=== PATIENT | male | born 1940 | race Caucasian/White ===

== ENCOUNTER 2016-08-27 17:08 | Emergency (ER) | payer MEDICARE, MEDICAID ==
[2016-08-27] MEDS ORDERED: NALOXONE HCL INJ/PF 0.4 MG/1 ML SDV ONE (17:36)
[2016-08-27] MEDS ORDERED: NALOXONE HCL INJ/PF 0.4 MG/1 ML SDV IV ONE (17:38)
--- NOTE | 2016-08-27 17:45 | ER Document Report ---
ED General - General Chief Complaint: Altered Mental Status Stated Complaint: UPRESPONSIVE Time seen by provider: 17:25 Mode of Arrival: Medic Information source: Emergency Med Personnel Notes: 76-year-old male sent from assisted with report of being nonverbal since noon. Review of records shows that his baseline neurologic status January 2015 was that he was alert and oriented to person only. Patient currently is obtunded and cannot provide history assisted cannot provide additional history Physical Exam: General: Alert, no respiratory distress. HEENT: Normocephalic. Atraumatic. PERRLA. Extraocular movements intact. Discs sharp with no papilledema sclerae anicteric no otorhinorrhea Oropharynx clear. Neck: Supple. Non-tender. No JVD no carotid bruits Respiratory: No respiratory distress. Clear and equal breath sounds bilaterally. Cardiovascular: Regular rate and rhythm. PMI not displaced Abdominal: Normal Inspection. Soft, non-tender. No distension. Normal Bowel Sounds. Back: Non-tender. No deformity or step off. Extremities all warm with 2+ pulses no cyanosis no edema passive range of motion does not produce any discomfort no Homans sign bilaterally Neurological: Did not appreciate any cranial nerve deficits. Patient is observed to have some spontaneous use of the left upper extremity but cannot otherwise cooperate with formal neurologic testing Psychological: Unable to assess Skin: Warm. Dry. Normal color. TRAVEL OUTSIDE OF THE [place] IN LAST 30 DAYS: No - Related Data Allergies/Adverse Reactions: No Known Allergies Allergy (Verified 12/25/15 13:30) Past Medical History - Social History Smoking Status: Unknown if Ever Smoked Family History: Other - Unobtainable due to altered mental status - Past Medical History Cardiac Medical History: Reports: Hx Congestive Heart Failure, Hx Coronary Artery Disease, Hx Heart Attack, Hx Hypercholesterolemia, Hx Hypertension, Hx Peripheral Vascular Disease, Hx Pulmonary Embolism Pulmonary Medical History: Denies: Hx Tuberculosis Neurological Medical History: Reports: Hx Cerebrovascular Accident - Residual right-sided weakness per old records, Hx Migraine Endocrine Medical History: Reports: Hx Diabetes Mellitus Type 2 GI Medical History: Reports: Hx Gastroesophageal Reflux Disease Musculoskeltal Medical History: Reports Hx Muscle Weakness Psychiatric Medical History: Reports: Hx Bipolar Disorder, Hx Dementia, Hx Depression Past Surgical History: Reports: Hx Cardiac Surgery - CABG, Hx Coronary Artery Bypass Graft, Hx Orthopedic Surgery - r-knee, back. Denies: Hx Pacemaker - Immunizations Hx Diphtheria, Pertussis, Tetanus Vaccination: Yes Hx Pneumococcal Vaccination: 02/24/11 Review of Systems - Review of Systems -: Yes ROS unobtainable due to patient's medical condition Physical Exam - Vital signs Vitals: Resp BP Pulse Ox 12 159/72 H 98 08/27/16 17:25 08/27/16 17:25 08/27/16 17:25 Course - Re-evaluation Re-evalutation: 08/27/16 19:16 The patient became awake and alert approximately 9 minutes after receiving 0.4 g of Narcan in the emergency department. His med list does not list narcotics and I'm not convinced that the Narcan actually reversed anything the patient may simply had a component of encephalopathy possibly related to other medicines that he is prescribed. In any case is now status has remained at his baseline since then though no new focal deficits and mental status seems normal according to his sister who is at the bedside. He does have some evidence for UTI and will be treated with antibiotics for that but I do not believe she requires admission. He is complaining about mild diffuse headache now and received Tylenol for that - Vital Signs Vital signs: Temp Pulse Resp BP Pulse Ox 97.5 F 19 144/79 H 97 08/27/16 18:34 08/27/16 18:01 08/27/16 18:01 08/27/16 18:01 - Laboratory Result Diagrams: 08/27/16 17:25 08/27/16 17:25 Laboratory results interpreted by me: 08/27/16 08/27/16 08/27/16 17:25 17:25 17:25 RDW 15.8 H PT 21.9 H Carbonic Acid ABG pH ABG pCO2 ABG pO2 ABG O2 Saturation BUN 24 H Creatinine 1.46 H Est GFR ( Amer) 57 L Est GFR (Non-Af Amer) 47 L Glucose 275 H POC Glucose AST 15 L Creatine Kinase 25 L Urine Protein Urine Glucose (UA) Urine Blood Urine Nitrite Ur Leukocyte Esterase 08/27/16 08/27/16 08/27/16 17:28 18:15 18:28 RDW PT Carbonic Acid 1.69 H ABG pH 7.26 L ABG pCO2 56.3 H ABG pO2 20.7 L* ABG O2 Saturation 26.8 L BUN Creatinine Est GFR ( Amer) Est GFR (Non-Af Amer) Glucose POC Glucose 246 H AST Creatine Kinase Urine Protein 100 H Urine Glucose (UA) >=500 H Urine Blood SMALL H Urine Nitrite POSITIVE H Ur Leukocyte Esterase TRACE H Urinalysis shows evidence for UTI - Diagnostic Test Radiology reviewed: Image reviewed, Reports reviewed - EKG Interpretation by Me Additional EKG results interpreted by me: 08/27/16 19:16 EKG reviewed by myself sinus rhythm at 64 first degree AV block and nonspecific intraventricular conduction delay nonspecific ST and T wave changes unchanged from 01/28/2016 Discharge - Discharge Clinical Impression: Acute encephalopathy UTI (urinary tract infection) Qualifiers: Urinary tract infection type: site unspecified Hematuria presence: without hematuria Qualified Code(s): N39.0 - Urinary tract infection, site not specified Condition: Stable Disposition: HOME-SNF (ED ONLY) Prescriptions: Cephalexin Monohydrate [Keflex 500 mg Capsule] 500 mg PO QID #40 capsule Referrals: SARAH ANDRADE MD [NO LOCAL MD] - Follow up in 1 week
[2016-08-27 18:09] LABS: ABSOLUTE BASOPHILS # (AUTO) 0.1 10^3/uL (0.0-0.2); ABSOLUTE EOSINOPHILS # (AUTO) 0.1 10^3/uL (0.0-0.6); ABSOLUTE LYMPHOCYTES (AUTO) 2.3 10^3/uL (0.5-4.7); ABSOLUTE MONOCYTES (AUTO) 0.5 10^3/uL (0.1-1.4); ABSOLUTE NEUT (AUTO) 4.7 10^3/uL (1.7-8.2); BASOPHILS % (AUTO) 0.9 % (0-2); EOSINOPHILS % (AUTO) 1.9 % (0-6); HEMATOCRIT 46.7 % (37.9-51.0); HEMOGLOBIN 15.7 g/dL (13.5-17.0); HGB HCT DIFFERENCE 0.4; LYMPHOCYTES % (AUTO) 30.1 % (13-45); MEAN CORPUSCULAR HEMOGLOBIN 28.9 pg (27.0-33.4); MEAN CORPUSCULAR HGB CONC 33.5 g/dL (32.0-36.0); MEAN CORPUSCULAR VOLUME 86 fl (80-97); MONOCYTES % (AUTO) 7.1 % (3-13); RED BLOOD COUNT 5.41 10^6/uL (4.35-5.55); RED CELL DISTRIBUTION WIDTH 15.8 % (11.5-14.0); WHITE BLOOD COUNT 7.8 10^3/uL (4.0-10.5)
[2016-08-27 18:12] LABS: PROTHROMBIN TIME 21.9 SEC (11.4-15.4)
[2016-08-27 18:13] LABS: PARTIAL THROMBOPLASTIN TIME 32.9 SEC (23.5-35.8)
[2016-08-27 18:21] LABS: ALANINE AMINOTRANSFERASE 23 U/L (21-72); ALBUMIN 3.8 g/dL (3.5-5.0); ALKALINE PHOSPHATASE 80 U/L (38-126); ANION GAP 12 (5-19); ASPARTATE AMINO TRANSFERASE 15 U/L (17-59); BILIRUBIN,DIRECT 0.4 mg/dL (0.0-0.4); BILIRUBIN,TOTAL 0.6 mg/dL (0.2-1.3); BLOOD UREA NITROGEN 24 mg/dL (7-20); CALCIUM 9.5 mg/dL (8.4-10.2); CARBON DIOXIDE 23 mmol/L (22-30); CHLORIDE 107 mmol/L (98-107); CREATINE KINASE 25 U/L (55-170); CREATININE RESULT 1.46 mg/dL (0.52-1.25); GLUCOSE 275 mg/dL (75-110); MAGNESIUM 2.1 mg/dL (1.6-2.3); POTASSIUM 4.6 mmol/L (3.6-5.0); SODIUM 141.9 mmol/L (137-145); TOTAL PROTEIN 6.9 g/dL (6.3-8.2)
[2016-08-27 18:29] LABS: ARTERIAL BLOOD BASE EXCESS -3.6 mmol/L; ARTERIAL BLOOD O2 SATURATION 26.8 % (94-98)
[2016-08-27 18:34] LABS: CREATINE KINASE MB 0.97 ng/mL (<4.55)
[2016-08-27 18:38] LABS: TROPONIN I < 0.012 ng/mL
[2016-08-27 19:00] LABS: APPEARANCE,URINE SLIGHTLY-CLOUDY; BILIRUBIN,URINE NEGATIVE (NEGATIVE); GLUCOSE, URINE >=500 mg/dL (NEGATIVE); KETONES,URINE NEGATIVE (NEGATIVE); LEUKOCYTE ESTERASE,URINE TRACE (NEGATIVE); NITRITE,URINE POSITIVE (NEGATIVE); PROTEIN,URINE 100 mg/dL (NEGATIVE); URINE SPECIFIC GRAVITY 1.021; UROBILINOGEN,URINE NEGATIVE mg/dL (<2.0)
[2016-08-27] MEDS ORDERED: ACETAMINOPHEN 325 MG TABLET PO ONE (19:18)
[2016-08-27 20:37] VITALS: BP 158/86
[2016-08-27 21:34] LABS: URINE BARBITURATES SCREEN NEGATIVE; URINE METHADONE SCREEN NEGATIVE; URINE OPIATES LOW NEGATIVE; URINE PHENCYCLIDINE SCREEN NEGATIVE
--- NOTE | 2016-08-28 08:12 | EKG REPORT ---
SEVERITY:- ABNORMAL ECG - SINUS RHYTHM FIRST DEGREE AV BLOCK NONSPECIFIC INTRAVENTRICULAR CONDUCTION DELAY MINIMAL ST DEPRESSION, LATERAL LEADS : Confirmed by: Ranjan White MD 28-Aug-2016 08:11:20
== END 2016-08-27 20:43 ==
LOC: ER 17:08
DX: R41.82 Altered mental status, unspecified (principal); G93.49 Other encephalopathy
CPT/HCPCS: 93005; 99285; 51702; 96374; 36415; 87040; 87086; 82553; 82962; 82803; 82550; 83735; 85025; 85610; 85730; 87088; 80053; 81001; 84484; 87186; 80307; 83880; 71010; 70450; 93010; A9270; J2310

== ENCOUNTER 2017-04-13 18:48 | Emergency (ER) | payer MEDICARE, MEDICAID ==
[2017-04-13 19:36] LABS: ABSOLUTE BASOPHILS # (AUTO) 0.1 10^3/uL (0.0-0.2); ABSOLUTE EOSINOPHILS # (AUTO) 0.2 10^3/uL (0.0-0.6); ABSOLUTE LYMPHOCYTES (AUTO) 1.9 10^3/uL (0.5-4.7); ABSOLUTE MONOCYTES (AUTO) 0.5 10^3/uL (0.1-1.4); ABSOLUTE NEUT (AUTO) 5.6 10^3/uL (1.7-8.2); BASOPHILS % (AUTO) 0.8 % (0-2); EOSINOPHILS % (AUTO) 2.1 % (0-6); HEMATOCRIT 43.5 % (37.9-51.0); HEMOGLOBIN 14.9 g/dL (13.5-17.0); HGB HCT DIFFERENCE 1.2; LYMPHOCYTES % (AUTO) 22.7 % (13-45); MEAN CORPUSCULAR HEMOGLOBIN 30.5 pg (27.0-33.4); MEAN CORPUSCULAR HGB CONC 34.2 g/dL (32.0-36.0); MEAN CORPUSCULAR VOLUME 89 fl (80-97); MONOCYTES % (AUTO) 5.9 % (3-13); RED BLOOD COUNT 4.88 10^6/uL (4.35-5.55); SEGMENTED NEUTROPHILS % (AUTO) 68.5 % (42-78); WHITE BLOOD COUNT 8.2 10^3/uL (4.0-10.5)
[2017-04-13 19:39] LABS: ALANINE AMINOTRANSFERASE 22 U/L (21-72); ALBUMIN 4.1 g/dL (3.5-5.0); ALKALINE PHOSPHATASE 65 U/L (38-126); ANION GAP 12 (5-19); ASPARTATE AMINO TRANSFERASE 24 U/L (17-59); BILIRUBIN,DIRECT 0.3 mg/dL (0.0-0.4); BILIRUBIN,TOTAL 0.4 mg/dL (0.2-1.3); BLOOD UREA NITROGEN 18 mg/dL (7-20); CALCIUM 9.2 mg/dL (8.4-10.2); CARBON DIOXIDE 23 mmol/L (22-30); CHLORIDE 108 mmol/L (98-107); CREATININE RESULT 1.29 mg/dL (0.52-1.25); GLUCOSE 175 mg/dL (75-110); POTASSIUM 4.5 mmol/L (3.6-5.0); SODIUM 142.8 mmol/L (137-145); TOTAL PROTEIN 7.1 g/dL (6.3-8.2)
--- NOTE | 2017-04-13 19:47 | RADIOLOGY REPORT (SQ) ---
EXAM DESCRIPTION: CHEST SINGLE VIEW COMPLETED DATE/TIME: 04/13/2017 7:36 pm REASON FOR STUDY: cough COMPARISON: 08/27/2016. EXAM PARAMETERS: NUMBER OF VIEWS: One view. TECHNIQUE: Single frontal radiographic view of the chest acquired. RADIATION DOSE: NA LIMITATIONS: None. FINDINGS: LUNGS AND PLEURA: Chronic elevation of the left hemidiaphragm. Scattered basilar scarring . No lobar infiltrates. No pleural effusion. No pneumothorax. No opacities, masses or pneumothora x. No pleural effusion. MEDIASTINUM AND HILAR STRUCTURES: No masses. Contour normal. HEART AND VASCULAR STRUCTURES: Heart normal in size. Normal vasculature. BONES: No acute findings. HARDWARE: Sternotomy wires and coronary bypass markers. Stimulator unit with electrodes extending in to the neck. OTHER: No other significant finding. IMPRESSION: STABLE CHRONIC CHANGES WITH BASILAR SCARRING. NO ACUTE FINDINGS. TECHNICAL DOCUMENTATION: JOB ID: [id number] [employer]- All Rights Reserved
[2017-04-13 19:55] LABS: APPEARANCE,URINE CLEAR; BILIRUBIN,URINE NEGATIVE (NEGATIVE); GLUCOSE, URINE >=500 mg/dL (NEGATIVE); KETONES,URINE NEGATIVE (NEGATIVE); LEUKOCYTE ESTERASE,URINE NEGATIVE (NEGATIVE); NITRITE,URINE NEGATIVE (NEGATIVE); PROTEIN,URINE 100 mg/dL (NEGATIVE); URINE SPECIFIC GRAVITY 1.016; UROBILINOGEN,URINE NEGATIVE mg/dL (<2.0)
--- NOTE | 2017-04-13 19:59 | ER Document Report ---
ED General - General Chief Complaint: Altered Mental Status Stated Complaint: ALTERED MENTAL STATUS Time Seen by Provider: 04/13/17 19:27 Notes: Patient is a 76-year-old male who presents from [facility] with staff concerns of altered mental status. The patient himself denies any complaints and states that he does not feel confused. On review of systems he does state that he has had a mild, dull, throbbing headache for the past several hours but does feel like his usual headaches. Nothing improves or worsens the headache. He denies any associated focal weakness, numbness, altered mental status, fever or neck pain. No head trauma. He denies any localizing infectious symptoms including dysuria, cough, sputum production, or abdominal pain. No vomiting or diarrhea. TRAVEL OUTSIDE OF THE [place] IN LAST 30 DAYS: No - Related Data Allergies/Adverse Reactions: No Known Allergies Allergy (Verified 12/25/15 13:30) Past Medical History - General Information source: Patient - Social History Smoking Status: Never Smoker Chew tobacco use (# tins/day): No Frequency of alcohol use: None Drug Abuse: None Lives with: Detention Family History: Reviewed & Not Pertinent, Other - Unobtainable due to altered mental status Patient has suicidal ideation: No Patient has homicidal ideation: No - Past Medical History Cardiac Medical History: Reports: Hx Congestive Heart Failure, Hx Coronary Artery Disease, Hx Heart Attack, Hx Hypercholesterolemia, Hx Hypertension, Hx Peripheral Vascular Disease, Hx Pulmonary Embolism Pulmonary Medical History: Denies: Hx Tuberculosis Neurological Medical History: Reports: Hx Cerebrovascular Accident - Residual right-sided weakness per old records, Hx Migraine Endocrine Medical History: Reports: Hx Diabetes Mellitus Type 2 Renal/ Medical History: Denies: Hx Peritoneal Dialysis GI Medical History: Reports: Hx Gastroesophageal Reflux Disease Musculoskeltal Medical History: Reports Hx Muscle Weakness Psychiatric Medical History: Reports: Hx Bipolar Disorder, Hx Dementia, Hx Depression Past Surgical History: Reports: Hx Cardiac Surgery - CABG, Hx Coronary Artery Bypass Graft, Hx Orthopedic Surgery - r-knee, back. Denies: Hx Pacemaker - Immunizations Hx Diphtheria, Pertussis, Tetanus Vaccination: Yes Hx Pneumococcal Vaccination: 02/24/11 Review of Systems - Review of Systems Notes: Constitutional: Negative for fever. HENT: Negative for sore throat. Eyes: Negative for visual changes. Cardiovascular: Negative for chest pain. Respiratory: Negative for shortness of breath. Gastrointestinal: Negative for abdominal pain, vomiting or diarrhea. Genitourinary: Negative for dysuria. Musculoskeletal: Negative for back pain. Skin: Negative for rash. Neurological: Positive for headache 10 point ROS negative except as marked above and in HPI. Physical Exam - Vital signs Vitals: Temp Pulse Resp BP Pulse Ox 98.9 F 70 14 158/88 H 99 04/13/17 18:55 04/13/17 18:55 04/13/17 18:55 04/13/17 18:55 04/13/17 18:55 Interpretation: Hypertensive Notes: PHYSICAL EXAMINATION: GENERAL: Well-appearing, well-nourished and in no acute distress. HEAD: Atraumatic, normocephalic. EYES: Pupils equal round and reactive to light, extraocular movements intact, sclera anicteric, conjunctiva are normal. ENT: nares patent, oropharynx clear without exudates. Moist mucous membranes. NECK: Normal range of motion, supple without lymphadenopathy LUNGS: Breath sounds clear to auscultation bilaterally and equal. No wheezes rales or rhonchi. HEART: Regular rate and rhythm without murmurs ABDOMEN: Soft, nontender, normoactive bowel sounds. No guarding, no rebound. No masses appreciated. EXTREMITIES: Normal range of motion, no pitting or edema. No cyanosis. NEUROLOGICAL: No focal neurological deficits. Moves all extremities spontaneously and on command. PSYCH: Normal mood, normal affect. SKIN: Warm, Dry, normal turgor, no rashes or lesions noted. Course - Re-evaluation Re-evalutation: 04/13/17 19:57 Presentation and an overall well-appearing patient in no acute distress with fci concerns of possible altered mental status a complaint with the patient denies. Patient is alert, oriented to month, year, name and location. At time of evaluation, patient's vitals are within normal limits and they are denying any additional acute complaints. Physical examination without focal findings. No neurologic deficits. They deny any chest pain, shortness of breath, nausea, vomiting, or diarrhea. No dysuria or fever. Basic laboratories including and urinalysis are unremarkable. Low clinical suspicion for ACS, occult pneumonia, acute intra-abdominal pathology, stroke, or transient ischemic attack based on clinical history, examination, and laboratories. They have tolerated oral intake without difficulty. I have discussed the importance of close outpatient follow-up as well as the need to return to emergency room immediately should they have any new or worsening symptoms. The patient and surrogate's are in agreement with this plan and verbalized indications for return to emergency department. - Vital Signs Vital signs: Temp Pulse Resp BP Pulse Ox 98.9 F 70 18 145/69 H 97 04/13/17 18:55 04/13/17 18:55 04/13/17 21:16 04/13/17 21:16 04/13/17 21:16 - Laboratory Result Diagrams: 04/13/17 19:00 04/13/17 19:00 Laboratory results interpreted by me: 04/13/17 04/13/17 04/13/17 19:00 19:00 19:30 RDW 16.0 H Chloride 108 H Creatinine 1.29 H Est GFR (Non-Af Amer) 54 L Glucose 175 H Urine Protein 100 H Urine Glucose (UA) >=500 H - Diagnostic Test Radiology reviewed: Image reviewed, Reports reviewed Radiology results interpreted by me: 04/13/17 19:58 Chest x-ray: No acute infiltrate or pneumothorax CT head: No acute intracranial bleed Discharge - Discharge Clinical Impression: Altered mental status Qualifiers: Altered mental status type: transient alteration of awareness Qualified Code(s) : R40.4 - Transient alteration of awareness Condition: Good Disposition: HOME, SELF-CARE Additional Instructions: Please return to the emergency room immediately if you experience any concerning symptoms including high fevers, severe headache, chest pain, difficulty breathing, abdominal pain, slurred speech, numbness or weakness in your arms or legs, or any other symptom that concerns you.
--- NOTE | 2017-04-13 20:11 | RADIOLOGY REPORT (SQ) ---
EXAM DESCRIPTION: CT HEAD WITHOUT COMPLETED DATE/TIME: 04/13/2017 7:59 pm REASON FOR STUDY: ams, headache COMPARISON: 08/27/2016. TECHNIQUE: Axial images acquired through the brain without intravenous contrast. Images reviewed wi th bone, brain and subdural windows. Images stored on PACS. All CT scanners at this facility use dose modulation, iterative reconstruction, and/or weight based d osing when appropriate to reduce radiation dose to as low as reasonably achievable (ALARA). [facility]: Dose Right [facility]: CareDose [facility]: Dose Right [facility]: Teradose 4D [facility]: Smart Nutrisystem RADIATION DOSE: CT Rad equipment meets quality standard of care and radiation dose reduction techniq ues were employed. CTDIvol: 64.6 mGy. DLP: 1163 mGy-cm. mGy. LIMITATIONS: None. FINDINGS: VENTRICLES: Normal size and contour. CEREBRUM: No masses. No hemorrhage. No midline shift. No evidence for acute infarction. Normal gra y/white matter differentiation. No areas of low density in the white matter. CEREBELLUM: No masses. No hemorrhage. No alteration of density. No evidence for acute infarction. EXTRAAXIAL SPACES: No fluid collections. No masses. ORBITS AND GLOBE: No intra- or extraconal masses. Normal contour of globe without masses. CALVARIUM: No fracture. PARANASAL SINUSES: No fluid or mucosal thickening. SOFT TISSUES: No mass or hematoma. OTHER: Electrodes in the posterior soft tissues. IMPRESSION: NORMAL BRAIN CT WITHOUT CONTRAST. EVIDENCE OF ACUTE STROKE: NO. COMMENT: Quality ID # [id number]: Final reports with documentation of one or more dose reduction techniques (e.g., Automated exposure control, adjustment of the mA and/or kV according to patient size, use of iterative reconstruction technique) TECHNICAL DOCUMENTATION: JOB ID: [id number] [employer]- All Rights Reserved
[2017-04-13] MEDS ORDERED: ACETAMINOPHEN 325 MG TABLET PO ONE (20:42)
[2017-04-13 21:23] VITALS: BP 145/69
--- NOTE | 2017-04-14 08:06 | EKG REPORT ---
SEVERITY:- ABNORMAL ECG - SINUS RHYTHM FIRST DEGREE AV BLOCK PROBABLE LEFT ATRIAL ABNORMALITY NONSPECIFIC INTRAVENTRICULAR CONDUCTION DELAY MINIMAL ST DEPRESSION, ANTEROLATERAL LEADS : Confirmed by: Ranjan White MD 14-Apr-2017 08:06:00
== END 2017-04-13 21:31 | disposition home or self-care (01) ==
LOC: ER 18:48
DX: R41.82 Altered mental status, unspecified (principal); E11.9 Type 2 diabetes mellitus without complications; I50.9 Heart failure, unspecified; E78.00 Pure hypercholesterolemia, unspecified; I11.0 Hypertensive heart disease with heart failure; I69.951 Hemiplegia and hemiparesis following unspecified cerebrovascular disease affecting right dominant side; Z95.1 Presence of aortocoronary bypass graft; I25.2 Old myocardial infarction; Z86.711 Personal history of pulmonary embolism
CPT/HCPCS: 93005; 99285; 36415; 85025; 80053; 81001; 71010; 70450; 93010; A9270

== ENCOUNTER 2017-08-15 15:56 | Emergency (ER) | payer MEDICARE, MEDICAID ==
[2017-08-15] MEDS ORDERED: DIPHENHYDRAMINE HCL 50 MG/ML VIAL IV ONE (16:11)
[2017-08-15] MEDS ORDERED: NORMAL SALINE 1000 ML 1,000 ML IV ONE (16:11)
[2017-08-15] MEDS ORDERED: METOCLOPRAMIDE HCL INJ/PF 10 MG/2 ML SDV IV ONE (16:11)
--- NOTE | 2017-08-15 16:16 | ER Document Report ---
ED Headache - General Chief Complaint: Headache Stated Complaint: HEADACHE Time Seen by Provider: 08/15/17 16:12 Notes: The patient is a 77 yo male, PMHx migraines, CAD, presents with several days of his usual headache that is described as a dull squeezing sensation. He received Tylenol and ibuprofen without much relief of his symptoms. He says the headache feels exactly similar to his prior headaches, where he has had a CAT scan in the past. Denies head injury, blurry vision, focal weakness, numbness, tingling, fevers, neck stiffness, chest pain, shortness of breath, rash, nausea or vomiting. TRAVEL OUTSIDE OF THE [place] IN LAST 30 DAYS: No - Related Data Allergies/Adverse Reactions: No Known Allergies Allergy (Verified 12/25/15 13:30) Past Medical History - General Information source: Patient - Social History Smoking Status: Unknown if Ever Smoked Family History: Reviewed & Not Pertinent, Other - Unobtainable due to altered mental status - Past Medical History Cardiac Medical History: Reports: Hx Congestive Heart Failure, Hx Coronary Artery Disease, Hx Heart Attack, Hx Hypercholesterolemia, Hx Hypertension, Hx Peripheral Vascular Disease, Hx Pulmonary Embolism Pulmonary Medical History: Denies: Hx Tuberculosis Neurological Medical History: Reports: Hx Cerebrovascular Accident - Residual right-sided weakness per old records, Hx Migraine Endocrine Medical History: Reports: Hx Diabetes Mellitus Type 2 Renal/ Medical History: Denies: Hx Peritoneal Dialysis GI Medical History: Reports: Hx Gastroesophageal Reflux Disease Musculoskeltal Medical History: Reports Hx Muscle Weakness Psychiatric Medical History: Reports: Hx Bipolar Disorder, Hx Dementia, Hx Depression Past Surgical History: Reports: Hx Cardiac Surgery - CABG, Hx Coronary Artery Bypass Graft, Hx Orthopedic Surgery - r-knee, back. Denies: Hx Pacemaker - Immunizations Hx Diphtheria, Pertussis, Tetanus Vaccination: Yes Hx Pneumococcal Vaccination: 02/24/11 Review of Systems - Review of Systems Notes: REVIEW OF SYSTEMS: CONSTITUTIONAL: -fevers, -chills EENT: -eye pain, -difficulty swallowing, -nasal congestion CARDIOVASCULAR: -chest pain, -syncope. RESPIRATORY: -cough, -SOB GASTROINTESTINAL: -abdominal pain, -nausea, -vomiting, -diarrhea GENITOURINARY: -dysuria, -hematuria MUSCULOSKELETAL: -back pain, -neck pain SKIN: -rash or skin lesions. HEMATOLOGIC: -easy bruising or bleeding. LYMPHATIC: -swollen, enlarged glands. NEUROLOGICAL: -altered mental status or loss of consciousness, +headache, - neurologic symptoms PSYCHIATRIC: -anxiety, -depression. ALL OTHER SYSTEMS REVIEWED AND NEGATIVE. Physical Exam - Vital signs Vitals: Resp Pulse Ox 19 99 08/15/17 16:01 08/15/17 16:01 - Notes Notes: PHYSICAL EXAMINATION: GENERAL: Well-appearing, well-nourished and in no acute distress. HEAD: Atraumatic, normocephalic. EYES: Pupils equal round and reactive to light, extraocular movements intact, sclera anicteric, conjunctiva are normal. ENT: nares patent, oropharynx clear without exudates. Moist mucous membranes. NECK: Normal range of motion, supple without lymphadenopathy LUNGS: Breath sounds clear to auscultation bilaterally and equal. No wheezes rales or rhonchi. HEART: Regular rate and rhythm without murmurs ABDOMEN: Soft, nontender, normoactive bowel sounds. No guarding, no rebound. No masses appreciated. EXTREMITIES: Normal range of motion, no pitting or edema. No cyanosis. NEUROLOGICAL: Cranial nerves grossly intact. Normal speech, normal gait. Normal sensory and motor exams. PSYCH: Normal mood, normal affect. SKIN: Warm, Dry, normal turgor, no rashes or lesions noted. Course - Re-evaluation Re-evalutation: Patient's headache is exactly the same as his prior headaches. He has already had multiple CAT scans for these headaches and there is no history of head injury. He is neurovascularly intact and no signs of meningitis. Symptoms are atypical for SAH and ICH at this time. After headache cocktail, his headache has improved. He says that the headache never really goes completely away. Instructed him to follow with his primary care physician for further evaluation and treatment. - Vital Signs Vital signs: Temp Pulse Resp BP Pulse Ox 12 153/66 H 99 08/15/17 17:55 08/15/17 17:55 08/15/17 17:55 Discharge - Discharge Clinical Impression: Headache Qualifiers: Headache type: unspecified Headache chronicity pattern: chronic headache Intractability: not intractable Qualified Code(s): R51 - Headache Condition: Stable Disposition: HOME, SELF-CARE Additional Instructions: HEADACHE: The physician does not feel that the headache you are experiencing has a serious underlying cause. Most headaches are due to emotional stress, with resultant muscle tension (tension headache). Occasionally, headaches are secondary to changes in the blood vessels of the scalp (vascular headache and migraine headache). Sometimes, a headache is the first symptom of another developing illness, such as a viral infection. You have no evidence of stroke, bleeding, meningitis, or other serious cause of your headache. The treatment of headaches varies with the severity and cause of the pain. Not all headaches need pain shots. In fact, there is evidence that using narcotics for headaches may make them worse in the long run. The physician will determine the therapy that's in your best interest. If you develop a fever, if the headache is different from any you've previously experienced, or if the headache progressively worsens, then call your physician at once or go to the emergency room. REGLAN (METOCLOPRAMIDE): Reglan has been prescribed. This medicine affects the stomach and intestines. It can be used to treat nausea and vomiting, to prevent reflux of stomach acid up into the esophagus, or to increase the contractions of the stomach and intestines. It is often prescribed for esophagitis, and for paralysis of the stomach in diabetics. Reglan can cause either mild restlessness or drowsiness. You should contact the doctor at once if you become extremely restless, anxious, or cannot sleep, or if you develop uncontrollable motions of the lips, tongue, or jaw. Do not take alcohol with this medicine. Do not drive or operate machinery until you have been taking this medicine long enough to know how it affects you. Call the doctor if you develop abdominal pains, lightheadedness, black stool, or blood in the stool or vomitus. USE OF DIPHENHYDRAMINE: Diphenhydramine (Benadryl) is an antihistamine and has been recommended to help treat your headache and to prevent side effects of other medications used to treat headaches. The medication can be repeated four times daily. Age Elixir (12.5 mg/tsp) 25 mg pill adult 1-2 tabs Antihistamines may cause drowsiness, especially with the first dose. Do not operate machinery or drive while under the effects of the medication. Do not combine the medication with alcohol, or with any other medication without talking to your doctor. FOLLOW-UP CARE: If you have been referred to a physician for follow-up care, call the physician s office for an appointment as you were instructed or within the next two days. If you experience worsening or a significant change in your symptoms, notify the physician immediately or return to the Emergency Department at any time for re-evaluation. Forms: Elevated Blood Pressure Referrals: EDENILSON MONTILLA MD [NO LOCAL MD] - Follow up as needed
[2017-08-15] MEDS ORDERED: KETOROLAC TROMETHAMINE INJ/PF 30 MG/1 ML SDV IV ONE (17:16)
[2017-08-15] MEDS: MAGNESIUM SULFATE/D5W 1 GM/100 ML RTUPB IV SCH ×2 (17:22→17:36)
[2017-08-15 17:57] VITALS: BP 153/66
[2017-08-15] MEDS ORDERED: BUTALB/ACETAMINOPHEN/CAFFEINE 1 TAB EACH PO ONE (18:04)
== END 2017-08-15 18:11 | disposition home or self-care (01) ==
LOC: ER 15:56
DX: R51 Headache (principal); I25.10 Atherosclerotic heart disease of native coronary artery without angina pectoris; I10 Essential (primary) hypertension; E11.51 Type 2 diabetes mellitus with diabetic peripheral angiopathy without gangrene; Z86.69 Personal history of other diseases of the nervous system and sense organs; Z86.73 Personal history of transient ischemic attack (TIA), and cerebral infarction without residual deficits
CPT/HCPCS: 96376; 99284; 96361; 96374; 96375; A9270; J1200; J1885; J2765; J3475; J7030; J3490

== ENCOUNTER 2018-03-09 00:05 | Emergency (ER) | payer MEDICARE, MEDICAID ==
--- NOTE | 2018-03-09 00:20 | ER Document Report ---
ED General - General Stated Complaint: ALTERED MENTAL STATUS Time Seen by Provider: 03/09/18 00:12 Notes: Patient is a 77-year-old male who presents to the ER because per the assisted report he has been less coherent than normal. Patient has been to the ER several times in the past for this. Patient currently is awake but a little bit somnolent. Pupils are pinpoint. He says he has no complaints at this time he denies any pain. His only concern at this time is "I just have to pee". Denies any injuries. He is on Coumadin. No chest pain. No shortness of breath. Denies abdominal pain. Denies recent infections or fevers. Reviewing his records from where his binders all times from past for this usually resolves the symptoms with time or he is given Narcan which will also typically relieve his symptoms. TRAVEL OUTSIDE OF THE [place] IN LAST 30 DAYS: No - Related Data Allergies/Adverse Reactions: No Known Allergies Allergy (Verified 12/25/15 13:30) Past Medical History - Social History Smoking Status: Never Smoker Frequency of alcohol use: None Drug Abuse: None Family History: Reviewed & Not Pertinent, Other - Unobtainable due to altered mental status - Past Medical History Cardiac Medical History: Reports: Hx Congestive Heart Failure, Hx Coronary Artery Disease, Hx Heart Attack, Hx Hypercholesterolemia, Hx Hypertension, Hx Peripheral Vascular Disease, Hx Pulmonary Embolism Pulmonary Medical History: Denies: Hx Tuberculosis Neurological Medical History: Reports: Hx Cerebrovascular Accident - Residual right-sided weakness per old records, Hx Migraine Endocrine Medical History: Reports: Hx Diabetes Mellitus Type 2 Renal/ Medical History: Denies: Hx Peritoneal Dialysis GI Medical History: Reports: Hx Gastroesophageal Reflux Disease Musculoskeletal Medical History: Reports Hx Muscle Weakness Psychiatric Medical History: Reports: Hx Bipolar Disorder, Hx Dementia, Hx Depression Past Surgical History: Reports: Hx Cardiac Surgery - CABG, Hx Coronary Artery Bypass Graft, Hx Orthopedic Surgery - r-knee, back. Denies: Hx Pacemaker - Immunizations Hx Diphtheria, Pertussis, Tetanus Vaccination: Yes Hx Pneumococcal Vaccination: 02/24/11 Review of Systems - Review of Systems Notes: My Normal Review Basic REVIEW OF SYSTEMS: CONSTITUTIONAL : Denies fever, chills, or sweats. Denies recent illness. EENT: Denies eye, ear, throat, or mouth pain or symptoms. Denies nasal or sinus congestion. CARDIOVASCULAR: Denies chest pain. RESPIRATORY: Denies cough, cold, or chest congestion. Denies shortness of breath, difficulty breathing, or wheezing. GASTROINTESTINAL: Denies abdominal pain. Denies nausea, vomiting, or diarrhea. Denies constipation. Last BM: MUSCULOSKELETAL: Denies neck or back pain or joint pain or swelling. SKIN: Denies rash or skin lesions. NEUROLOGICAL: Report from assisted that he is more somnolent than usual.. Denies headache. Denies weakness or paralysis or loss of use of either side. Denies problems with gait or speech. Denies sensory or motor loss. ALL OTHER SYSTEMS REVIEWED AND NEGATIVE. Physical Exam - Vital signs Vitals: Temp Resp Pulse Ox 98.1 F 17 98 03/09/18 00:09 03/09/18 00:09 03/09/18 00:09 - Notes Notes: General Appearance: Well nourished, awake but little bit somnolent., cooperative , no acute distress, no obvious discomfort. Vitals: reviewed, See vital signs table. Head: no swelling or tenderness to the head Eyes: Pupils are pinpoint., EOMI, Conjuctiva clear Mouth: No decreasd moisture Throat: No tonsillar inflammation, No airway obstruction, No lymphadenopathy Lungs: No wheezing, No rales, No rhonci, No accessory muscle use, good air exchange bilaterally. Heart: Normal rate, Regular rythm, No murmur, no rub Abdomen: Normal BS, soft, No rigidity, No abdominal tenderness, No guarding, no rebound, no abdominal masses, no organomegaly Extremities: good pulses in all extremities, no swelling or tenderness in the extremities, no edema. Skin: warm, dry, appropriate color, no rash Neuro: speech clear, oriented x 2, somnolent affect, responds appropriately to questions. Cranial nerves II through XII are intact. Patient is good strength in upper extremities. Some decreased strength in lower extremities which I think is chronic from his previous stroke. Course - Re-evaluation Re-evalutation: 03/09/18 03:51 On reevaluation patient is sleeping but very easily arousable. When I wake him up he is fully awake and able to answer all my questions without difficulty. He has no further complaints at this time. I feel he safe to be discharged home. I cannot find any underlying cause of his altered mental status other than the possibility that this could be pain medication related. I come to possible assumption because patient arrived with very pinpoint pupils and was a little bit somnolent. Also in the past is responded to Narcan. We gave him a very small dose of Narcan which did make him much more arousable and his pinpoint pupils resolved. I did do a CT scan of his head because he is on Coumadin and the chief complaint was altered mental status throughout the day. CT scan of the head is negative. I see no signs of infections. He is not hypercapnic does not have respiratory acidosis. At this time I feel he safe to be discharged home. He is to return to ER if he has recurrent altered mental status, fevers, or any signs of infection, or if there is any further concerns. Dictation of this chart was performed using voice recognition software; therefore, there may be some unintended grammatical errors. - Vital Signs Vital signs: Temp Pulse Resp BP Pulse Ox 98.1 F 18 139/67 H 99 03/09/18 00:09 03/09/18 03:02 03/09/18 03:02 03/09/18 02:27 - Laboratory Result Diagrams: 03/09/18 00:20 03/09/18 00:20 Laboratory results interpreted by me: 03/09/18 03/09/18 03/09/18 00:20 00:20 00:20 RBC 4.28 L Hgb 13.1 L RDW 15.5 H PT 28.0 H Chloride 108 H Carbon Dioxide 20 L BUN 27 H Creatinine 1.54 H Est GFR ( Amer) 53 L Est GFR (Non-Af Amer) 44 L Glucose 354 H POC Glucose Albumin 3.4 L Urine Protein Urine Glucose (UA) Urine Urobilinogen 03/09/18 03/09/18 00:20 02:14 RBC Hgb RDW PT Chloride Carbon Dioxide BUN Creatinine Est GFR ( Amer) Est GFR (Non-Af Amer) Glucose POC Glucose 347 H Albumin Urine Protein 100 H Urine Glucose (UA) >=500 H Urine Urobilinogen 2.0 H - EKG Interpretation by Me Additional EKG results interpreted by me: 03/09/18 00:19 EKG is reviewed and interpreted by me. EKG shows sinus rhythm with a rate of 66 bpm. Patient does have a left bundle branch block which is old in comparison to his previous EKG from April 13, 2017. No new ST segment changes. NE interval is prolonged. QRS duration prolonged. QTc interval is borderline. 03/09/18 00:20 Discharge - Discharge Clinical Impression: Hyperglycemia Altered mental status Qualifiers: Altered mental status type: unspecified Qualified Code(s): R41.82 - Altered mental status, unspecified Additional Instructions: We have not found any concerning findings on Mr. Barnhart's workup today. I did notice that in the past his drowsiness responded well to Narcan which suggests pain medicine has effected him in the past. His pupils were small and therefore I gave him Narcan which helped again. He does not have any pain medicine on the med list here so please make sure that Mr. Barnhart is not accidentally receiving opiate pain medicine. Please have him return to the ER if he has difficulty breathing, fevers, or is not acting like his usual self. please have him reevaluated by the assisted physician within the next 24 hours. Referrals: FARHAD NAIDU, DO [Primary Care Provider] - Follow up tomorrow
[2018-03-09] MEDS ORDERED: NALOXONE HCL INJ/PF 0.4 MG/1 ML SDV IV ONE ×2 (00:23→00:24)
[2018-03-09 00:36] LABS: ABSOLUTE BASOPHILS # (AUTO) 0.1 10^3/uL (0.0-0.2); ABSOLUTE EOSINOPHILS # (AUTO) 0.2 10^3/uL (0.0-0.6); ABSOLUTE LYMPHOCYTES (AUTO) 2.3 10^3/uL (0.5-4.7); ABSOLUTE MONOCYTES (AUTO) 0.6 10^3/uL (0.1-1.4); ABSOLUTE NEUT (AUTO) 3.7 10^3/uL (1.7-8.2); EOSINOPHILS % (AUTO) 2.9 % (0-6); HEMATOCRIT 38.7 % (37.9-51.0); HEMOGLOBIN 13.1 g/dL (13.5-17.0); LYMPHOCYTES % (AUTO) 33.9 % (13-45); MEAN CORPUSCULAR HEMOGLOBIN 30.6 pg (27.0-33.4); MEAN CORPUSCULAR HGB CONC 33.9 g/dL (32.0-36.0); MEAN CORPUSCULAR VOLUME 90 fl (80-97); MONOCYTES % (AUTO) 8.2 % (3-13); PLATELET COUNT 212 10^3/uL (150-450); RED BLOOD COUNT 4.28 10^6/uL (4.35-5.55); RED CELL DISTRIBUTION WIDTH 15.5 % (11.5-14.0); TOTAL CELLS COUNTED % (AUTO) 100 %; WHITE BLOOD COUNT 6.8 10^3/uL (4.0-10.5)
[2018-03-09 00:37] LABS: APPEARANCE,URINE CLEAR; BILIRUBIN,URINE NEGATIVE (NEGATIVE); COLOR,URINE YELLOW; GLUCOSE, URINE >=500 mg/dL (NEGATIVE); KETONES,URINE NEGATIVE (NEGATIVE); LEUKOCYTE ESTERASE,URINE NEGATIVE (NEGATIVE); NITRITE,URINE NEGATIVE (NEGATIVE); PROTEIN,URINE 100 mg/dL (NEGATIVE); URINE SPECIFIC GRAVITY 1.022
[2018-03-09 00:45] LABS: INTERNATIONAL RATION (INR) 2.47; PARTIAL THROMBOPLASTIN TIME 32.8 SEC (23.5-35.8)
[2018-03-09] MEDS ORDERED: INSULIN REG, HUMAN 100 UNIT/ML 3 ML VIAL (PYX) SUBCUT ONE (00:45)
[2018-03-09 00:49] LABS: ALANINE AMINOTRANSFERASE 31 U/L (21-72); ALBUMIN 3.4 g/dL (3.5-5.0); ALKALINE PHOSPHATASE 69 U/L (38-126); ANION GAP 12 (5-19); ASPARTATE AMINO TRANSFERASE 22 U/L (17-59); BILIRUBIN,DIRECT 0.2 mg/dL (0.0-0.4); BILIRUBIN,TOTAL 0.3 mg/dL (0.2-1.3); BLOOD UREA NITROGEN 27 mg/dL (7-20); CALCIUM 8.9 mg/dL (8.4-10.2); CARBON DIOXIDE 20 mmol/L (22-30); CHLORIDE 108 mmol/L (98-107); GLUCOSE 354 mg/dL (75-110); SODIUM 139.6 mmol/L (137-145); TOTAL PROTEIN 6.3 g/dL (6.3-8.2)
--- NOTE | 2018-03-09 01:19 | RADIOLOGY REPORT (SQ) ---
EXAM DESCRIPTION: CT HEAD WITHOUT IV CONTRAST COMPLETED DATE/TME: 03/09/2018 00:18 CLINICAL HISTORY: 77 years, Male, altered mental status COMPARISON: None. TECHNIQUE: 193 Images stored on PACS. All CT scanners at this facility use dose modulation, iterative reconstruction, and/or weight based dosing when appropriate to reduce radiation dose to as low as reasonably achievable (ALARA). [facility]: Dose Right [facility]: CareDose [facility]: Dose Right [facility]: Teradose 4D [facility]: [employer] LIMITATIONS: None. FINDINGS: The globes are intact. The paranasal sinuses and mastoid air cells are unremarkable. No displaced or depressed skull fracture. Stimulating wires project over the occipital region. There is no intra or extra-axial hemorrhage. CT is limited for evaluation of acute infarct. No CT evidence for large or territorial acute infarct. No mass or midline shift. Mild diffuse atrophy. Hypodensities in the periventricular and subcortical white matter consistent with sequelae of minor small vessel ischemic change. IMPRESSION: Age-appropriate atrophy and minor small vessel ischemic change. TECHNICAL DOCUMENTATION: Quality ID # 436: Final reports with documentation of one or more dose reduction techniques (e.g., Automated exposure control, adjustment of the mA and/or kV according to patient size, use of iterative reconstruction technique) 2010 [employer]- All Rights Reserved
--- NOTE | 2018-03-09 01:22 | RADIOLOGY REPORT (SQ) ---
EXAM DESCRIPTION: XR CHEST 1 VIEW COMPLETED DATE/TME: 03/09/2018 00:19 CLINICAL HISTORY: 77 years, Male, altered mental status COMPARISON: None. NUMBER OF VIEWS: 1 TECHNIQUE: Frontal view the chest LIMITATIONS: None. FINDINGS: Cardiomegaly. Atheromatous change and ectasia of the thoracic aorta. Median sternotomy wires. Mild elevation left hemidiaphragm. No pneumothorax. Minor scarring left lung base. Lungs are otherwise clear. Stimulating device projects over the left hemithorax. IMPRESSION: No acute cardiopulmonary process 2010 [facility] [employer] [email or web address]- All Rights Reserved
[2018-03-09 03:38] LABS: VENOUS BLOOD BASE EXCESS -4.9 mmol/L; VENOUS BLOOD HCO3 21.5 mmol/L (20-32); VENOUS BLOOD PCO2 44.4 mmHg (35-63); VENOUS BLOOD PH 7.3 (7.30-7.42)
[2018-03-09 06:35] VITALS: BP 126/60
--- NOTE | 2018-03-09 07:23 | EKG REPORT ---
SEVERITY:- ABNORMAL ECG - SINUS RHYTHM FIRST DEGREE AV BLOCK LEFT BUNDLE BRANCH BLOCK : Confirmed by: Eugenie Olivier 09-Mar-2018 07:22:05
== END 2018-03-09 04:36 | disposition home or self-care (01) ==
LOC: ER 00:05
DX: E11.65 Type 2 diabetes mellitus with hyperglycemia (principal); E11.51 Type 2 diabetes mellitus with diabetic peripheral angiopathy without gangrene; R40.0 Somnolence; I44.7 Left bundle-branch block, unspecified; I25.10 Atherosclerotic heart disease of native coronary artery without angina pectoris; I10 Essential (primary) hypertension; I25.2 Old myocardial infarction; Z79.01 Long term (current) use of anticoagulants
CPT/HCPCS: 93005; 99285; 96374; 36415; 82962; 85025; 85610; 85730; 80053; 81001; 84484; 82803; 71045; 70450; 93010; J2310; A9270; J1815

== ENCOUNTER 2018-04-24 15:36 | Emergency (ER) | payer MEDICARE, MEDICAID ==
--- NOTE | 2018-04-24 16:13 | RADIOLOGY REPORT (SQ) ---
EXAM DESCRIPTION: CT CERVICAL SPINE WITHOUT COMPLETED DATE/TIME: 04/24/2018 4:01 pm REASON FOR STUDY: bed 11 s/p fall per dr rodriguez COMPARISON: None. TECHNIQUE: Axial images acquired through the cervical spine without intravenous contrast. Images re viewed with lung, soft tissue and bone windows. Reconstructed coronal and sagittal MPR images review ed. Images stored on PACS. All CT scanners at this facility use dose modulation, iterative reconstruction, and/or weight based d osing when appropriate to reduce radiation dose to as low as reasonably achievable (ALARA). [facility]: Dose Right [facility]: CareDose [facility]: Dose Right [facility]: Teradose 4D [facility]: [employer] RADIATION DOSE: CT Rad equipment meets quality standard of care and radiation dose reduction techniq ues were employed. CTDIvol: 21.6 mGy. DLP: 490 mGy-cm. mGy. LIMITATIONS: None. FINDINGS: ALIGNMENT: Anatomic. MINERALIZATION: Normal. VERTEBRAL BODIES: No fractures or dislocation. DISCS: Multilevel disc space narrowing with osteophytes. FACETS, LATERAL MASSES, POSTERIOR ELEMENTS: Facet arthropathy. No fractures. No dislocation. No ac [place] findings. HARDWARE: None in the spine. VISUALIZED RIBS: No fractures. LUNG APICES AND SOFT TISSUES: No significant or acute findings. OTHER: No other significant finding. IMPRESSION: CHRONIC DEGENERATIVE CHANGES. NO ACUTE FINDINGS. TECHNICAL DOCUMENTATION: JOB ID: [id number] Quality ID # 436: Final reports with documentation of one or more dose reduction techniques (e.g., Au tomated exposure control, adjustment of the mA and/or kV according to patient size, use of iterative reconstruction technique) 2010 [employer]- All Rights Reserved Reading location - IP/workstation name: [email or web address]
--- NOTE | 2018-04-24 16:13 | RADIOLOGY REPORT (SQ) ---
EXAM DESCRIPTION: CT HEAD WITHOUT COMPLETED DATE/TIME: 04/24/2018 4:01 pm REASON FOR STUDY: bed 11 s/p fall per dr rodriguez COMPARISON: None. TECHNIQUE: Axial images acquired through the brain without intravenous contrast. Images reviewed wi th bone, brain and subdural windows. Additional sagittal and coronal reconstructions were generated. Images stored on PACS. All CT scanners at this facility use dose modulation, iterative reconstruction, and/or weight based d osing when appropriate to reduce radiation dose to as low as reasonably achievable (ALARA). [facility]: Dose Right [facility]: CareDose [facility]: Dose Right [facility]: Teradose 4D [facility]: [employer] RADIATION DOSE: CT Rad equipment meets quality standard of care and radiation dose reduction techniq ues were employed. CTDIvol: 53.2 mGy. DLP: 1017 mGy-cm.mGy. LIMITATIONS: None. FINDINGS: VENTRICLES: Prominent. CEREBRUM: No masses. No hemorrhage. No midline shift. Areas of low density in the white matter mos t likely due to chronic micro-vascular ischemic change. No evidence for acute infarction. CEREBELLUM: No masses. No hemorrhage. No alteration of density. No evidence for acute infarction. EXTRAAXIAL SPACES: Age-related involutional change. No fluid collections. No masses. ORBITS AND GLOBE: No intra- or extraconal masses. Normal contour of globe without masses. CALVARIUM: No fracture. PARANASAL SINUSES: No fluid or mucosal thickening. SOFT TISSUES: No mass or hematoma. OTHER: No other significant finding. IMPRESSION: CHRONIC CHANGES OF ATROPHY AND MICROVASCULAR ISCHEMIA. NO ACUTE PROCESS. EVIDENCE OF ACUTE STROKE: NO. TECHNICAL DOCUMENTATION: JOB ID: [id number] Quality ID # 436: Final reports with documentation of one or more dose reduction techniques (e.g., Au tomated exposure control, adjustment of the mA and/or kV according to patient size, use of iterative reconstruction technique) 2010 [employer]- All Rights Reserved Reading location - IP/workstation name: [email or web address]
[2018-04-24] MEDS ORDERED: ACETAMINOPHEN 325 MG TABLET PO ONE (16:25)
--- NOTE | 2018-04-24 16:38 | ER Document Report ---
ED General - General Chief Complaint: Fall Stated Complaint: FALL Time Seen by Provider: 04/24/18 15:39 Notes: Patient is a 77-year-old male that presents to the emergency department for chief complaint of fall and head injury. History obtained by staff and EMS as the patient has dementia. Patient was apparently found next to his bed in his room, had an unwitnessed fall, was alert upon him being found, unknown downtime. He is complaining of some back pain, states it is mild, denies radiation down his legs. He denies having a headache or neck pain at this time. Patient does not remember the events to this, he is alert and oriented x1 at baseline. He remembers he fell, just does not know how he fell. Past Medical History: Dementia, end-stage renal disease, diabetes mellitus, history of CVA, hypertension and hyperlipidemia Past Surgical History: Reviewed and not pertinent to presentation Social History: Currently resides at a half-way facility, no current tobacco or alcohol use. Family History: Reviewed and noncontributory for presenting illness Allergies: Reviewed, see documented allergy list. REVIEW OF SYSTEMS: Complete review of systems is not obtainable at this time as the patient has advanced dementia. PHYSICAL EXAMINATION: Vital signs reviewed, nursing noted reviewed. GENERAL: Elderly male, alert, oriented x1 HEAD: Atraumatic, normocephalic. No scalp lacerations EYES: Eyes appear normal, extraocular movements intact, sclera anicteric, conjunctiva are normal. PERRLA ENT: nares patent, oropharynx clear without exudates. Moist mucous membranes. No midface instability, TMs appear normal bilaterally. NECK: neck in a cervical collar, no midline tenderness. LUNGS: Breath sounds clear to auscultation bilaterally and equal. No wheezes rales or rhonchi. HEART: Regular rate and rhythm without murmurs ABDOMEN: Soft, nontender, normoactive bowel sounds. No rebound, guarding, or rigidity. No masses appreciated. EXTREMITIES: Bilateral lower extremity limb contractures flexion at the hips and knees. Patient able to flex the hip somewhat, without pain, pelvis is stable. And nontender. Negative logrolling bilaterally. Sensation and motor intact distally. NEUROLOGICAL: No focal neurological deficits. Moves all extremities, flexion contractures of the lower extremities bilaterally. Alert and oriented x1 PSYCH: Normal mood, normal affect. SKIN: Warm, Dry, normal turgor, no rashes or lesions noted on exposed skin TRAVEL OUTSIDE OF THE [place] IN LAST 30 DAYS: No - Related Data Allergies/Adverse Reactions: No Known Allergies Allergy (Verified 12/25/15 13:30) Past Medical History - Social History Smoking Status: Unknown if Ever Smoked Family History: Reviewed & Not Pertinent, Other - Unobtainable due to altered mental status Patient has suicidal ideation: No Patient has homicidal ideation: No - Past Medical History Cardiac Medical History: Reports: Hx Atrial Fibrillation, Hx Congestive Heart Failure, Hx Coronary Artery Disease, Hx Heart Attack, Hx Hypercholesterolemia, Hx Hypertension, Hx Peripheral Vascular Disease, Hx Pulmonary Embolism Pulmonary Medical History: Denies: Hx Tuberculosis Neurological Medical History: Reports: Hx Cerebrovascular Accident - Residual right-sided weakness per old records, Hx Migraine Endocrine Medical History: Reports: Hx Diabetes Mellitus Type 2 Renal/ Medical History: Reports: Hx End Stage Renal Disease. Denies: Hx Peritoneal Dialysis GI Medical History: Reports: Hx Gastroesophageal Reflux Disease Musculoskeletal Medical History: Reports Hx Muscle Weakness Psychiatric Medical History: Reports: Hx Bipolar Disorder, Hx Dementia, Hx Depression Past Surgical History: Reports: Hx Cardiac Surgery - CABG, Hx Coronary Artery Bypass Graft, Hx Orthopedic Surgery - r-knee, back. Denies: Hx Pacemaker - Immunizations Hx Diphtheria, Pertussis, Tetanus Vaccination: Yes Hx Pneumococcal Vaccination: 02/24/11 Physical Exam - Vital signs Vitals: Temp Pulse Resp BP Pulse Ox 98.4 F 62 16 140/59 H 96 04/24/18 15:53 04/24/18 15:53 04/24/18 15:53 04/24/18 15:53 04/24/18 15:53 Course - Re-evaluation Re-evalutation: CT of the head and cervical spine were obtained, and were negative for acute injury or fracture. Cervical collar was removed after negative CT imaging. Patient was given Tylenol for his back pain. He did not have any step-offs or deformities on his exam of his back, and no tenderness to the midline. There is no obvious deformity, and no focal neurological deficits. I do not feel the patient needed acute lumbar imaging as a result. At this point I feel the patient can be discharged back to the half-way facility without any further workup, he did not show signs of significant external trauma, was moving all limbs. Patient discharge back to half-way facility. Cervical Spine CT 04/24/18 00:00 IMPRESSION: CHRONIC DEGENERATIVE CHANGES. NO ACUTE FINDINGS. Head CT 04/24/18 00:00 IMPRESSION: CHRONIC CHANGES OF ATROPHY AND MICROVASCULAR ISCHEMIA. NO ACUTE PROCESS. EVIDENCE OF ACUTE STROKE: NO. - Vital Signs Vital signs: Temp Pulse Resp BP Pulse Ox 98.4 F 64 16 168/71 H 98 04/24/18 15:53 04/24/18 16:45 04/24/18 16:45 04/24/18 16:45 04/24/18 16:45 Discharge - Discharge Clinical Impression: Fall Qualifiers: Encounter type: initial encounter Qualified Code(s): W19.XXXA - Unspecified fall, initial encounter Closed head injury Qualifiers: Encounter type: initial encounter Qualified Code(s): S09.90XA - Unspecified injury of head, initial encounter Condition: Stable Disposition: HOME-SNF (ED ONLY) Instructions: Head Injury Precautions ([facility]) Additional Instructions: Please follow-up with the physician, that sees you in the alf, you can have Tylenol 650 mg, every 6 hours for pain. Your CAT scans were negative for any injury to your head or neck. Referrals: ZEV RAM MD [Primary Care Provider] - Follow up in 3-5 days
[2018-04-24 16:56] VITALS: BP 168/71
== END 2018-04-24 17:17 ==
LOC: ER 15:36
DX: S09.90XA Unspecified injury of head, initial encounter (principal); W19.XXXA Unspecified fall, initial encounter; F03.90 Unspecified dementia, unspecified severity, without behavioral disturbance, psychotic disturbance, mood disturbance, and anxiety; E11.22 Type 2 diabetes mellitus with diabetic chronic kidney disease; I50.9 Heart failure, unspecified; I13.2 Hypertensive heart and chronic kidney disease with heart failure and with stage 5 chronic kidney disease, or end stage renal disease; N18.6 End stage renal disease; I69.951 Hemiplegia and hemiparesis following unspecified cerebrovascular disease affecting right dominant side; Z95.1 Presence of aortocoronary bypass graft
CPT/HCPCS: 99285; 70450; 72125; A9270

== ENCOUNTER 2018-11-09 20:01 | Inpatient (IN) | payer MEDICARE, MEDICAID ==
--- NOTE | 2018-11-09 20:19 | ER Document Report ---
ED Medical Screen (RME) - General Stated Complaint: ALTERED MENTAL STATUS Primary Care Provider: ZEV RAM MD [Primary Care Provider] - Follow up as needed Mode of Arrival: Medic Information source: Emergency Med Personnel Cannot obtain history due to: Altered mental status Notes: 78-year-old male presents via EMS from [facility] with complaint of altered mental status that occurred this afternoon. EMS reports that nursing stated that the patient is not at his baseline. Patient does have a history of previous CVA, aphasia, dysarthria and is wheelchair-bound but usually alert and awake. EMS denies any reports of hematemesis, fall. I have greeted and performed a rapid initial assessment of this patient. A comprehensive ED assessment and evaluation of the patient, analysis of test results and completion of medical decision making process we will be contacted by additional ED providers. PHYSICAL EXAMINATION: Vital signs reviewed GENERAL: Ill-appearing, blood in mouth and back of throat. LUNGS: spontaneous respirations Musculoskeletal: No movement NEUROLOGICAL: Awake, does not follow commands. SKIN: Skin tenting TRAVEL OUTSIDE OF THE [place] IN LAST 30 DAYS: No - HPI Onset: This afternoon - Related Data Allergies/Adverse Reactions: No Known Allergies Allergy (Verified 12/25/15 13:30) Past Medical History - Past Medical History Cardiac Medical History: Reports: Hx Atrial Fibrillation, Hx Congestive Heart Failure, Hx Coronary Artery Disease, Hx Heart Attack, Hx Hypercholesterolemia, Hx Hypertension, Hx Peripheral Vascular Disease, Hx Pulmonary Embolism Pulmonary Medical History: Denies: Hx Tuberculosis Neurological Medical History: Reports: Hx Cerebrovascular Accident - Residual right-sided weakness per old records, Hx Migraine Endocrine Medical History: Reports: Hx Diabetes Mellitus Type 2 Renal/ Medical History: Reports: Hx End Stage Renal Disease. Denies: Hx Peritoneal Dialysis GI Medical History: Reports: Hx Gastroesophageal Reflux Disease Musculoskeltal Medical History: Reports Hx Muscle Weakness Psychiatric Medical History: Reports: Hx Bipolar Disorder, Hx Dementia, Hx Depression Past Surgical History: Reports: Hx Cardiac Surgery - CABG, Hx Coronary Artery Bypass Graft, Hx Orthopedic Surgery - r-knee, back. Denies: Hx Pacemaker - Immunizations Hx Diphtheria, Pertussis, Tetanus Vaccination: Yes Doctor's Discharge - Discharge Referrals: ZEV RAM MD [Primary Care Provider] - Follow up as needed
[2018-11-09] MEDS ORDERED: PHYTONADIONE INJ 10 MG/1 ML AMPULE IV ONE (20:24)
--- NOTE | 2018-11-09 20:27 | ER Document Report ---
ED General - General Chief Complaint: Altered Mental Status Stated Complaint: ALTERED MENTAL STATUS Primary Care Provider: ZEV RAM MD [Primary Care Provider] - Follow up as needed Mode of Arrival: Medic Notes: 78-year-old male presents via EMS from [facility] with complaint of altered mental status that occurred this afternoon. EMS reports that nursing stated that the patient is not at his baseline. Patient does have a history of previous CVA, aphasia, dysarthria and is wheelchair-bound but usually alert and awake. EMS denies any reports of hematemesis, fall. It appears patient had an outpatient PT/INR done and the lab report states that PT was greater than 120. Reviewing his medical list he is on Coumadin. TRAVEL OUTSIDE OF THE [place] IN LAST 30 DAYS: No - Related Data Allergies/Adverse Reactions: No Known Allergies Allergy (Verified 12/25/15 13:30) Past Medical History - General Information source: Emergency Med Personnel - Social History Smoking Status: Unknown if Ever Smoked Family History: Reviewed & Not Pertinent, Other - Unobtainable due to altered mental status - Past Medical History Cardiac Medical History: Reports: Hx Atrial Fibrillation, Hx Congestive Heart Failure, Hx Coronary Artery Disease, Hx Heart Attack, Hx Hypercholesterolemia, Hx Hypertension, Hx Peripheral Vascular Disease, Hx Pulmonary Embolism Pulmonary Medical History: Denies: Hx Tuberculosis Neurological Medical History: Reports: Hx Cerebrovascular Accident - Residual right-sided weakness per old records, Hx Migraine Endocrine Medical History: Reports: Hx Diabetes Mellitus Type 2 Renal/ Medical History: Reports: Hx End Stage Renal Disease. Denies: Hx Peritoneal Dialysis GI Medical History: Reports: Hx Gastroesophageal Reflux Disease Musculoskeletal Medical History: Reports Hx Muscle Weakness Psychiatric Medical History: Reports: Hx Bipolar Disorder, Hx Dementia, Hx Dep ression Past Surgical History: Reports: Hx Cardiac Surgery - CABG, Hx Coronary Artery Bypass Graft, Hx Orthopedic Surgery - r-knee, back. Denies: Hx Pacemaker - Immunizations Hx Diphtheria, Pertussis, Tetanus Vaccination: Yes Hx Pneumococcal Vaccination: 02/24/11 Review of Systems - Review of Systems -: Yes ROS unobtainable due to patient's medical condition Physical Exam - Vital signs Vitals: Temp Pulse Resp BP Pulse Ox 99.1 F 94 20 135/72 H 94 11/09/18 20:01 11/09/18 20:01 11/09/18 20:01 11/09/18 20:01 11/09/18 20:01 - Notes Notes: PHYSICAL EXAMINATION: Reviewed vital signs and charting by RN GENERAL: Open eyes to voice, no acute distress HEAD: Normocephalic, atraumatic. EYES: Pupils equal and round. Extraocular movements intact. ENT: Oral mucosa moist, tongue midline, large amount of coffee-ground blood/emesis seen in the back of the throat NECK: Full range of motion. Trachea midline. LUNGS: Coarse breath sounds heard throughout all mccarthy. No respiratory distress. HEART: Regular rate and rhythm. No murmur ABDOMEN: soft, tenderness to palpation. No distention. Bowel sounds present EXTREMITIES: Moves all 4 extremities spontaneously. No edema, No cyanosis. SKIN: Warm, dry, normal turgor. No rashes or lesions noted. No mottling Course - Re-evaluation Re-evalutation: 11/09/18 21:25 Patient arrives from [facility]. I initially attempted to call the point of contact in his paperwork, Mrs. Olya Connor, who referred me to the patient's sister this is Joanie Addison, who was not involved in the patient's care due to her own medical problems. She is unsure what his DNR status is but the paperwork from [facility] states that he is a full code. Patient came here and it was discovered in his paperwork that he had a PT/INR done earlier today and the PT was read as greater than 120. Patient had a positive blood Hemoccult on rectal exam and coffee-ground blood/emesis seen in the back of his throat. When we performed a rectal exam and changed his diaper he was bleeding from his urethra. Vitamin K 10 mg ordered and FFP 2 units ordered. Patient's blood work returned and he is a leukocytosis of 16,500. Patient's sodium was 160, his BUN was 123, creatinine was 5.89 significantly elevated from his baseline 1 month ago of around 1.1-1.3. Patient is extremely dehydrated so lactated Ringer's 2 L were ordered. Plan is to place an NG tube, Gonsalez catheter has been placed. 11/09/18 22:03 NG tube has been placed, x-ray was completed which confirmed that it is below the diaphragm and will advance 5 more centimeters. 11/09/18 22:47 Nurse reported that a critical value from lab was called confirming the PT was greater than 120. I called [facility] to initiate a transfer awaiting a callback. 11/10/18 00:[address] Singh, hospitalist, who was uncomfortable accepting the patient because we do not have urology and he was concerned about the CT with the bilateral moderate hydronephrosis with perinephric stranding. I then spoke with Dr. Lisa, hospitalist on-call at [facility] who declined the patient. I then called [facility] and Dr. Govea graciously accepted the patient. They currently do not have an available bed. 11/10/18 05:48 - Vital Signs Vital signs: Temp Pulse Resp BP Pulse Ox 97.5 F 80 16 137/65 H 99 11/10/18 06:51 11/10/18 06:00 11/10/18 06:51 11/10/18 06:51 11/10/18 06:51 - Laboratory Result Diagrams: 11/09/18 20:15 11/10/18 03:05 Laboratory results interpreted by me: 11/09/18 11/09/18 11/09/18 20:15 20:15 20:38 WBC 16.5 H RBC 4.20 L Hgb 11.7 L Hct 36.6 L RDW 16.3 H Seg Neutrophils % 82.5 H Lymphocytes % 10.4 L Absolute Neutrophils 13.6 H PT APTT Carbonic Acid ABG pH ABG pCO2 ABG HCO3 ABG Total CO2 Sodium 160.6 H Chloride 132 H Carbon Dioxide 15 L BUN 126 H Creatinine 5.89 H Est GFR ( Amer) 11 L Est GFR (Non-Af Amer) 9 L Glucose 332 H POC Glucose 315 H Direct Bilirubin 0.5 H Albumin 3.3 L Urine Protein Urine Glucose (UA) Urine Blood 11/09/18 11/09/18 11/09/18 21:00 21:19 23:16 WBC RBC Hgb Hct RDW Seg Neutrophils % Lymphocytes % Absolute Neutrophils PT > 120.0 H* APTT 130.7 H Carbonic Acid 0.82 L ABG pH 7.34 L ABG pCO2 27.1 L ABG HCO3 14.3 L ABG Total CO2 15.1 L Sodium Chloride Carbon Dioxide BUN Creatinine Est GFR ( Amer) Est GFR (Non-Af Amer) Glucose POC Glucose Direct Bilirubin Albumin Urine Protein 100 H Urine Glucose (UA) 150 H Urine Blood LARGE H 11/10/18 03:05 WBC RBC Hgb Hct RDW Seg Neutrophils % Lymphocytes % Absolute Neutrophils PT APTT Carbonic Acid ABG pH ABG pCO2 ABG HCO3 ABG Total CO2 Sodium 159.2 H Chloride 129 H Carbon Dioxide 20 L BUN 118 H Creatinine 5.28 H Est GFR ( Amer) 13 L Est GFR (Non-Af Amer) 11 L Glucose 314 H POC Glucose Direct Bilirubin Albumin Urine Protein Urine Glucose (UA) Urine Blood Critical Care Note - Critical Care Note Total time excluding time spent on procedures (mins): 45 Comments: Critical care time spent obtaining history from patient or surrogate, discussions with consultants, development of treatment plan with patient or surrogate, evaluation of patient's response to treatment, examination of patient, ordering and performing treatments and interventions, ordering and review of laboratory studies, re-evaluation of patient's condition, ordering and review of radiographic studies and review of old charts Discharge - Discharge Clinical Impression: Acute GI bleeding, Acute kidney injury Altered mental status Qualifiers: Altered mental status type: stupor Qualified Code(s): R40.1 - Stupor Condition: Stable Disposition: [facility] Referrals: ZEV RAM MD [Primary Care Provider] - Follow up as needed
[2018-11-09 20:31] LABS: ABSOLUTE BASOPHILS # (AUTO) 0.1 10^3/uL (0.0-0.2); ABSOLUTE LYMPHOCYTES (AUTO) 1.7 10^3/uL (0.5-4.7); ABSOLUTE MONOCYTES (AUTO) 1.1 10^3/uL (0.1-1.4); ABSOLUTE NEUT (AUTO) 13.6 10^3/uL (1.7-8.2); BASOPHILS % (AUTO) 0.4 % (0-2); EOSINOPHILS % (AUTO) 0.3 % (0-6); HEMATOCRIT 36.6 % (37.9-51.0); HEMOGLOBIN 11.7 g/dL (13.5-17.0); LYMPHOCYTES % (AUTO) 10.4 % (13-45); MEAN CORPUSCULAR HEMOGLOBIN 27.9 pg (27.0-33.4); MEAN CORPUSCULAR VOLUME 87 fl (80-97); MONOCYTES % (AUTO) 6.4 % (3-13); PLATELET COUNT 356 10^3/uL (150-450); RED CELL DISTRIBUTION WIDTH 16.3 % (11.5-14.0); SEGMENTED NEUTROPHILS % (AUTO) 82.5 % (42-78); TOTAL CELLS COUNTED % (AUTO) 100 %; WHITE BLOOD COUNT 16.5 10^3/uL (4.0-10.5)
[2018-11-09 20:44] LABS: ALANINE AMINOTRANSFERASE 72 U/L (21-72); ALBUMIN 3.3 g/dL (3.5-5.0); ALKALINE PHOSPHATASE 118 U/L (38-126); ANION GAP 14 (5-19); ASPARTATE AMINO TRANSFERASE 22 U/L (17-59); BILIRUBIN,DIRECT 0.5 mg/dL (0.0-0.4); BILIRUBIN,TOTAL 0.5 mg/dL (0.2-1.3); CALCIUM 8.9 mg/dL (8.4-10.2); CARBON DIOXIDE 15 mmol/L (22-30); CHLORIDE 132 mmol/L (98-107); CREATINE KINASE 121 U/L (55-170); GLUCOSE 332 mg/dL (75-110); POTASSIUM 4.5 mmol/L (3.6-5.0); SODIUM 160.6 mmol/L (137-145); TOTAL PROTEIN 7.5 g/dL (6.3-8.2)
[2018-11-09 20:55] LABS: CREATINE KINASE MB 2.07 ng/mL (<4.55)
[2018-11-09 20:56] LABS: BLOOD UREA NITROGEN 126 mg/dL (7-20)
[2018-11-09 21:02] LABS: TROPONIN I 0.081 ng/mL
--- NOTE | 2018-11-09 21:05 | RADIOLOGY REPORT (SQ) ---
XR CHEST 1 VIEW EXAM DATE: 11/09/2018 8:08 PM CDT HISTORY: Stroke. COMPARISON: 03/09/2018 FINDINGS: Stable heart size with prior CABG noted. No consolidation, pleural effusion, or pneumothorax is seen. Left lung base scarring. There are no acute bony findings. The left hemidiaphragm is elevated. IMPRESSION: No evidence of acute cardiopulmonary disease.
--- NOTE | 2018-11-09 21:09 | RADIOLOGY REPORT (SQ) ---
CT ABDOMEN PELVIS WITHOUT IV CONTRAST EXAM DATE: 11/09/2018 8:14 PM CDT HISTORY: Abdominal pain. COMPARISON: None. TECHNIQUE: CT scan of the abdomen and pelvis was performed without IV contrast. This exam was performed according to our departmental dose-optimization program, which includes automated exposure control, adjustment of the mA and/or kV according to patient size and/or use of iterative reconstruction technique. FINDINGS: The lung bases are clear. No pleural or pericardial effusions. There is no hiatal hernia. Gallstones are present. The liver, spleen, pancreas, and adrenal glands are normal. There is bilateral hydroureter and periureteric stranding but without radiopaque stones identified. No hydronephrosis. The kidneys are mildly atrophic. The prostate gland is not well-visualized. Large amount of stool in the rectum suggesting constipation. The appendix is normal. No small bowel obstruction. No intraperitoneal free fluid or free air is seen. Diffuse atherosclerotic calcifications throughout the aorta with a maximum diameter of 3.1 cm. There are mild degenerative changes of the spine. Chronic deformity of the sacrum. Fusion of the lumbar spinous processes. No body wall hernia. IMPRESSION: 1. Bilateral hydroureter and periureteric stranding without radiopaque stone identified. This may represent recently passed stone versus infection. Correlate with urinalysis. 2. Large amount of stool in the rectum suggesting constipation. No bowel obstruction or diverticulitis. 3. Gallstones without inflammatory changes. 4. 3.1 cm abdominal aortic aneurysm. Recommend follow-up every 3 years. Reference: J Am Vitaliy Radiol 2013;10:789-794.
--- NOTE | 2018-11-09 21:10 | RADIOLOGY REPORT (SQ) ---
CT HEAD WITHOUT IV CONTRAST EXAM DATE: 11/09/2018 8:08 PM CDT HISTORY: Stroke. COMPARISON: 04/24/2018 TECHNIQUE: CT scan of the brain without IV contrast. This exam was performed according to our departmental dose-optimization program, which includes automated exposure control, adjustment of the mA and/or kV according to patient size and/or use of iterative reconstruction technique. FINDINGS: There are scattered areas of hypoattenuation within the periventricular white matter, which likely represent chronic microvascular ischemia. No evidence of acute infarction, intracranial hemorrhage, extra-axial fluid collection, or midline shift. No air-fluid levels are seen in the paranasal sinuses to suggest acute sinusitis. No depressed skull fracture. IMPRESSION: No acute intracranial findings are seen. Please note that MRI is more sensitive for the evaluation of early infarction, and may be performed if there is high clinical concern.
[2018-11-09 21:13] LABS: ARTERIAL BLOOD H2CO3 0.82 mmol/L (1.05-1.35); ARTERIAL BLOOD HCO3 14.3 mmol/L (20-24); ARTERIAL BLOOD O2 SATURATION 97.2 % (94-98); ARTERIAL BLOOD PCO2 27.1 mmHg (35-45); ARTERIAL BLOOD PH 7.34 (7.35-7.45); ARTERIAL BLOOD PO2 97.7 mmHg (80-100); ARTERIAL BLOOD TOTAL CO2 15.1 mmol/L (23-27)
[2018-11-09 21:14] LABS: ARTERIAL BLOOD FIO2 2L
[2018-11-09] MEDS ORDERED: NORMAL SALINE 250 ML IV PRN (21:17)
[2018-11-09 21:57] LABS: PARTIAL THROMBOPLASTIN TIME 130.7 SEC (23.5-35.8)
[2018-11-09] MEDS ORDERED: PANTOPRAZOLE SODIUM 40 MG VIAL IV ONE (22:05)
[2018-11-09 22:22] LABS: PROTHROMBIN TIME > 120.0 SEC (11.4-15.4)
--- NOTE | 2018-11-09 22:34 | RADIOLOGY REPORT (SQ) ---
EXAM DESCRIPTION: XR CHEST 1 VIEW COMPLETED DATE/TME: 11/09/2018 21:48 CLINICAL HISTORY: 78 years, Male, NG tube placement confirmation COMPARISON: Multiple priors, most recent from earlier the same day NUMBER OF VIEWS: Two TECHNIQUE: Two frontal radiographs of the chest were obtained LIMITATIONS: None. FINDINGS: Enteric drainage tube tip projects about the gastric cardia with side-port located in the distal esophagus. Status post median sternotomy. Cardiac and mediastinal contours are stable. Linear opacities are noted about the left lung base, likely indicating atelectasis or scar. Lungs are otherwise clear. No pleural effusion or pneumothorax. An electronic generator pack projects over the left hemithorax. The lead extending into the leftward aspect of the neck base. IMPRESSION: Enteric drainage tube tip is located within the gastric cardia with side-port located at the GE junction. Consider advancement for optimal positioning. Bandlike atelectasis about the left lung base. copyright 2010 [employer]- All Rights Reserved
[2018-11-09] MEDS: RINGERS SOLUTION,LACTATED 1,000 ML IV PRN ×2 (22:42→23:43)
[2018-11-09 23:45] LABS: BILIRUBIN,URINE NEGATIVE (NEGATIVE); GLUCOSE, URINE 150 mg/dL (NEGATIVE); KETONES,URINE NEGATIVE (NEGATIVE); LEUKOCYTE ESTERASE,URINE NEGATIVE (NEGATIVE); NITRITE,URINE NEGATIVE (NEGATIVE); PROTEIN,URINE 100 mg/dL (NEGATIVE); URINE SPECIFIC GRAVITY 1.025; UROBILINOGEN,URINE NEGATIVE mg/dL (<2.0)
[2018-11-09 23:46] LABS: COLOR,URINE RED
[2018-11-09 23:47] LABS: APPEARANCE,URINE TURBID
--- NOTE | 2018-11-10 00:26 | ER Document Report ---
Doctor's Note Notes: I personally and independently obtained patient history and examined the patient in conjunction with the APC and agree with the assessment, treatment plan and disposition of the patient as recorded by the APC, and have reviewed the APC's note. HISTORY OF PRESENT ILLNESS: Patient is a 78-year-old male with multiple medical problems, from intermediate that presents to the emergency department for chief complaint of altered mental status. ROS: Complete review of systems is not obtainable at this time secondary to the pat ient's altered mental status. PHYSICAL EXAMINATION: Vital signs reviewed, nursing noted reviewed. GENERAL: Elderly male, altered on exam HEAD: Atraumatic, normocephalic. EYES: Eyes appear normal, conjunctiva are normal. ENT: nares patent, oropharynx clear without exudates. Dry mucous membranes NECK: Normal range of motion, supple without lymphadenopathy LUNGS: Breath sounds clear to auscultation bilaterally and equal. No wheezes rales or rhonchi. HEART: Regular rate and rhythm without murmurs ABDOMEN: Soft, mild diffuse tenderness to palpation, normoactive bowel sounds. No rebound, guarding, or rigidity. No masses appreciated. EXTREMITIES: Nontender, good range of motion, no pitting or edema. NEUROLOGICAL: Confused on exam, baseline aphasia and dysarthria PSYCH: Confused SKIN: Warm, Dry, normal turgor MEDICAL DECISION MAKING: Patient seen and examined, vital signs reviewed, patient appears rather dehydrated on exam, Gonsalez catheter was placed, he did have bloody urine, his laboratory data was reviewed, he was noted to have markedly elevated INR, and acute kidney injury, suspect prerenal, due to dehydration, he did have a metabolic acidosis, with respiratory compensation, patient was treated with IV fluids, started on Rocephin for possible UTI, and monitored very closely. Patient did start having urine output after IV fluids, will continue to give IV fluids, give him a total of 3 L, repeat BMP, plan for transfer to tertiary facility, due to his significant CAMRYN. CT imaging demonstrated hydronephrosis, therefore that is why the patient's Gonsalez was placed, without presence of stone. Patient symptoms are consistent with uremia, given confusion, abdominal discomfort, and significant acute kidney injury. Due to the patient's bleeding, he was given IV vitamin K, and 2 units of FFP. Please review detail APC documentation. *Note is created using voice recognition software and may contain spelling, syntax or grammatical errors. Laboratory 11/09/18 11/09/18 11/09/18 20:15 20:15 20:15 WBC 16.5 H RBC 4.20 L Hgb 11.7 L Hct 36.6 L MCV 87 MCH 27.9 MCHC 32.0 RDW 16.3 H Plt Count 356 Seg Neutrophils % 82.5 H Lymphocytes % 10.4 L Monocytes % 6.4 Eosinophils % 0.3 Basophils % 0.4 Absolute Neutrophils 13.6 H Absolute Lymphocytes 1.7 Absolute Monocytes 1.1 Absolute Eosinophils 0.0 Absolute Basophils 0.1 PT Cancelled INR Cancelled APTT Cancelled Carbonic Acid HCO3/H2CO3 Ratio ABG pH ABG pCO2 ABG pO2 ABG HCO3 ABG Total CO2 ABG O2 Saturation ABG Base Excess FiO2 Sodium 160.6 H Potassium 4.5 Chloride 132 H Carbon Dioxide 15 L Anion Gap 14 BUN 126 H Creatinine 5.89 H Est GFR ( Amer) 11 L Est GFR (Non-Af Amer) 9 L Glucose 332 H POC Glucose Lactic Acid Calcium 8.9 Total Bilirubin 0.5 Direct Bilirubin 0.5 H Neonat Total Bilirubin Not Reportable Neonat Direct Bilirubin Not Reportable Neonat Indirect Bili Not Reportable AST 22 ALT 72 Alkaline Phosphatase 118 Creatine Kinase 121 CK-MB (CK-2) Troponin I Total Protein 7.5 Albumin 3.3 L Urine Color Urine Appearance Urine pH Ur Specific [place] Urine Protein Urine Glucose (UA) Urine Ketones Urine Blood Urine Nitrite Urine Bilirubin Urine Urobilinogen Ur Leukocyte Esterase Urine WBC (Auto) Urine RBC (Auto) Urine Ascorbic Acid POC Stool Occult Blood Blood Type 11/09/18 11/09/18 11/09/18 20:15 20:15 20:15 WBC RBC Hgb Hct MCV MCH MCHC RDW Plt Count Seg Neutrophils % Lymphocytes % Monocytes % Eosinophils % Basophils % Absolute Neutrophils Absolute Lymphocytes Absolute Monocytes Absolute Eosinophils Absolute Basophils PT INR APTT Carbonic Acid HCO3/H2CO3 Ratio ABG pH ABG pCO2 ABG pO2 ABG HCO3 ABG Total CO2 ABG O2 Saturation ABG Base Excess FiO2 Sodium Potassium Chloride Carbon Dioxide Anion Gap BUN Creatinine Est GFR ( Amer) Est GFR (Non-Af Amer) Glucose POC Glucose Lactic Acid 1.1 Calcium Total Bilirubin Direct Bilirubin Neonat Total Bilirubin Neonat Direct Bilirubin Neonat Indirect Bili AST ALT Alkaline Phosphatase Creatine Kinase CK-MB (CK-2) 2.07 Troponin I 0.081 Total Protein Albumin Urine Color Urine Appearance Urine pH Ur Specific [place] Urine Protein Urine Glucose (UA) Urine Ketones Urine Blood Urine Nitrite Urine Bilirubin Urine Urobilinogen Ur Leukocyte Esterase Urine WBC (Auto) Urine RBC (Auto) Urine Ascorbic Acid POC Stool Occult Blood Blood Type A POSITIVE 11/09/18 11/09/18 11/09/18 20:38 21:00 21:09 WBC RBC Hgb Hct MCV MCH MCHC RDW Plt Count Seg Neutrophils % Lymphocytes % Monocytes % Eosinophils % Basophils % Absolute Neutrophils Absolute Lymphocytes Absolute Monocytes Absolute Eosinophils Absolute Basophils PT INR APTT Carbonic Acid 0.82 L HCO3/H2CO3 Ratio 17:1 ABG pH 7.34 L ABG pCO2 27.1 L ABG pO2 97.7 ABG HCO3 14.3 L ABG Total CO2 15.1 L ABG O2 Saturation 97.2 ABG Base Excess -10.0 FiO2 2L Sodium Potassium Chloride Carbon Dioxide Anion Gap BUN Creatinine Est GFR ( Amer) Est GFR (Non-Af Amer) Glucose POC Glucose 315 H Lactic Acid Calcium Total Bilirubin Direct Bilirubin Neonat Total Bilirubin Neonat Direct Bilirubin Neonat Indirect Bili AST ALT Alkaline Phosphatase Creatine Kinase CK-MB (CK-2) Troponin I Total Protein Albumin Urine Color Urine Appearance Urine pH Ur Specific [place] Urine Protein Urine Glucose (UA) Urine Ketones Urine Blood Urine Nitrite Urine Bilirubin Urine Urobilinogen Ur Leukocyte Esterase Urine WBC (Auto) Urine RBC (Auto) Urine Ascorbic Acid POC Stool Occult Blood POSITIVE Blood Type 11/09/18 11/09/18 21:19 23:16 WBC RBC Hgb Hct MCV MCH MCHC RDW Plt Count Seg Neutrophils % Lymphocytes % Monocytes % Eosinophils % Basophils % Absolute Neutrophils Absolute Lymphocytes Absolute Monocytes Absolute Eosinophils Absolute Basophils PT > 120.0 H* INR UNABLE TO CALCULATE INR APTT 130.7 H Carbonic Acid HCO3/H2CO3 Ratio ABG pH ABG pCO2 ABG pO2 ABG HCO3 ABG Total CO2 ABG O2 Saturation ABG Base Excess FiO2 Sodium Potassium Chloride Carbon Dioxide Anion Gap BUN Creatinine Est GFR ( Amer) Est GFR (Non-Af Amer) Glucose POC Glucose Lactic Acid Calcium Total Bilirubin Direct Bilirubin Neonat Total Bilirubin Neonat Direct Bilirubin Neonat Indirect Bili AST ALT Alkaline Phosphatase Creatine Kinase CK-MB (CK-2) Troponin I Total Protein Albumin Urine Color RED Urine Appearance TURBID Urine pH 5.0 Ur Specific [place] 1.025 Urine Protein 100 H Urine Glucose (UA) 150 H Urine Ketones NEGATIVE Urine Blood LARGE H Urine Nitrite NEGATIVE Urine Bilirubin NEGATIVE Urine Urobilinogen NEGATIVE Ur Leukocyte Esterase NEGATIVE Urine WBC (Auto) 146 Urine RBC (Auto) >182 Urine Ascorbic Acid NEGATIVE POC Stool Occult Blood Blood Type Head CT 11/09/18 20:08 IMPRESSION: No acute intracranial findings are seen. Please note that MRI is more sensitive for the evaluation of early infarction, and may be performed if there is high clinical concern. Abdomen/Pelvis CT 11/09/18 20:14 IMPRESSION: 1. Bilateral hydroureter and periureteric stranding without radiopaque stone identified. This may represent recently passed stone versus infection. Correlate with urinalysis. 2. Large amount of stool in the rectum suggesting constipation. No bowel obstruction or diverticulitis. 3. Gallstones without inflammatory changes. 4. 3.1 cm abdominal aortic aneurysm. Recommend follow-up every 3 years. Reference: J Am Vitaliy Radiol 2013;10:789-794. Chest X-Ray 11/09/18 21:48 IMPRESSION: Enteric drainage tube tip is located within the gastric cardia with side-port located at the GE junction. Consider advancement for optimal positioning. Bandlike atelectasis about the left lung base. copyright 2010 [employer]- All Rights Reserved
[2018-11-10] MEDS ORDERED: CEFTRIAXONE 1 GM/D5W RTU 1 GM/50 ML RTUPB IV ONE (00:33)
[2018-11-10] MEDS ORDERED: RINGERS SOLUTION,LACTATED 1,000 ML IV ONE (02:57)
[2018-11-10 03:35] LABS: ANION GAP 10 (5-19); BLOOD UREA NITROGEN 118 mg/dL (7-20); CALCIUM 8.9 mg/dL (8.4-10.2); CARBON DIOXIDE 20 mmol/L (22-30); CHLORIDE 129 mmol/L (98-107); GLUCOSE 314 mg/dL (75-110); POTASSIUM 4.6 mmol/L (3.6-5.0); SODIUM 159.2 mmol/L (137-145)
--- NOTE | 2018-11-10 09:01 | EKG REPORT ---
SEVERITY:- ABNORMAL ECG - SINUS ARRHYTHMIA, RATE 71-102 NONSPECIFIC INTRAVENTRICULAR CONDUCTION DELAY MINIMAL ST DEPRESSION, ANTEROLATERAL LEADS : Confirmed by: Ranjan White MD 10-Nov-2018 09:00:03
[2018-11-10] MEDS ORDERED: CEFTRIAXONE 1 GM/D5W RTU 1 GM/50 ML RTUPB IV SCH (10:00)
[2018-11-10 11:56] LABS: ABSOLUTE EOSINOPHILS # (AUTO) 0.1 10^3/uL (0.0-0.6); ABSOLUTE MONOCYTES (AUTO) 0.7 10^3/uL (0.1-1.4); EOSINOPHILS % (AUTO) 0.8 % (0-6); MEAN CORPUSCULAR HEMOGLOBIN 27.8 pg (27.0-33.4); PLATELET COUNT 264 10^3/uL (150-450); TOTAL CELLS COUNTED % (AUTO) 100 %
[2018-11-10 12:02] LABS: ABSOLUTE LYMPHOCYTES (AUTO) 1.5 10^3/uL (0.5-4.7); ABSOLUTE NEUT (AUTO) 12.9 10^3/uL (1.7-8.2); BASOPHILS % (AUTO) 0.3 % (0-2); HEMATOCRIT 29.8 % (37.9-51.0); LYMPHOCYTES % (AUTO) 9.7 % (13-45); MEAN CORPUSCULAR HGB CONC 31.9 g/dL (32.0-36.0); MEAN CORPUSCULAR VOLUME 87 fl (80-97); MONOCYTES % (AUTO) 4.6 % (3-13); RED BLOOD COUNT 3.42 10^6/uL (4.35-5.55); RED CELL DISTRIBUTION WIDTH 16.1 % (11.5-14.0); SEGMENTED NEUTROPHILS % (AUTO) 84.6 % (42-78); WHITE BLOOD COUNT 15.2 10^3/uL (4.0-10.5)
[2018-11-10 12:04] LABS: HEMOGLOBIN 9.5 g/dL (13.5-17.0)
[2018-11-10 12:12] LABS: INTERNATIONAL RATION (INR) 1.82
[2018-11-10 12:19] LABS: ALANINE AMINOTRANSFERASE 57 U/L (21-72); ALBUMIN 3.2 g/dL (3.5-5.0); ALKALINE PHOSPHATASE 102 U/L (38-126); ANION GAP 11 (5-19); ASPARTATE AMINO TRANSFERASE 20 U/L (17-59); BILIRUBIN,DIRECT 0.5 mg/dL (0.0-0.4); BILIRUBIN,TOTAL 0.5 mg/dL (0.2-1.3); BLOOD UREA NITROGEN 109 mg/dL (7-20); CALCIUM 8.6 mg/dL (8.4-10.2); CARBON DIOXIDE 21 mmol/L (22-30); CHLORIDE 131 mmol/L (98-107); GLUCOSE 284 mg/dL (75-110); POTASSIUM 4.1 mmol/L (3.6-5.0); SODIUM 162.5 mmol/L (137-145); TOTAL PROTEIN 6.4 g/dL (6.3-8.2)
[2018-11-10 12:24] LABS: PROTHROMBIN TIME 21.3 SEC (11.4-15.4)
--- NOTE | 2018-11-10 16:36 | ER Document Report ---
Doctor's Note Notes: /1 Discharge Summary ED Provider: YULY HUDSON Status: Transfer Accepted Time Seen by Provider: 11/10/18 16:25 Condition: Stable Triaged At: 11/09/18 20:01 Emergency Discharge Date/Time: Emergency Discharge Disposition: [facility] Clinical Impression Acute GI bleeding Acute kidney injury Altered mental status Emergency Discharge Comment: Discharge Intervention Last Done Vital Signs (ED) Discharge Documentation Left Without Being Seen (LWBS) Left Against Medical Advice (AMA)/Eloped Instructions: Stand-Alone Forms: Prescriptions: Visit Report - Forms: - Referrals: ZEV RAM MD (Primary Care Provider) - Follow up as needed Surgeons Discharge Summary *Bolt Sorter CAPTURE Start: 11/09/18 20:26 Freq: Status: Active Protocol: Document 11/10/18 15:16 [facility] (Rec: 11/10/18 15:[address] [id number] Monitor Capture Temperature Temperature (97.0 F-100.4 F) 98.7 F Pulse Rate Heart Rate (Monitors) 87 Respiratory Respiratory Rate (12-20 breaths/min) 18 Pulse Oximetry (92-100) 99 Blood Pressure Blood Pressure (100/60-125/85 mm Hg) 106/66 Blood Pressure Mean (mm Hg) 79 Pivot Start: 11/09/18 20:01 Freq: NOW Status: Complete Protocol: Document 11/09/18 20:01 [facility] (Rec: 11/09/18 20:34 [email or web address]) Pivot Arrival Chief Complaint Altered Mental Status Priority Level 2 Stroke/TIA Suspected Is this a TPA alert? No Pain Assessment Pain Level Denies Is This a Long Bone Pain Patient? No Restraint: Non-Violent Behavior Start: 11/09/18 22:57 Freq: Q2 Status: Active Protocol: Document 11/10/18 05:00 [facility] (Rec: 11/10/18 05:59 [email or web address]) Non-Violent Behavior Restraint Status Restraints Status Continued Nursing Unit Patient is Located On ED Indications for Initiating Restraints Attempting to remove IV Gonsalez catheter NG/OG tube Type/Location of Restraints Restraint Location Right UE Left UE Restraint Type Soft Limb Least Restrictive Measures Attempted Unsuccessful measures attempted Reality Orientation Environmental Support Close to Nurses Station Care Rendered Need for Restraints-Check Q 2 Hours Yes Restraints Applied Appropriately Q 2 Yes Hours ADL's Addressed Q 2 Hours Yes ADL's Addressed Q 2 Hours Elimination Hygiene Nutrition CMS/Skin Check Q 2 Hours Yes Position Change Q 2 Hours Yes Release/ROM Q 2 Hours Yes Respirations WNL-Check Q 2 Hours Yes Triage- Altered Mental Status Start: 11/09/18 20:26 Freq: NOW Status: Complete Protocol: Document 11/09/18 20:01 [facility] (Rec: 11/09/18 21:04 [facility] [email or web address]) [place] Coma Scale Assess Eye Opening To Pain Verbal Response None Motor Response Withdraws to Pain Total Coma Scale Total (15 points) 7 HPI- Altered Mental Status HPI Onset This afternoon Symptoms Constant Duration Continues in ED Confirmed onset No Arousable To Deep Pain Found unconscious/unknown duration by care home staff Was STROKE ALERT Called Yes Baseline Baseline cognitive Unknown Baseline gait Unable to walk Infection Control Screen CRE Status REFER TO INFECTION CONTROL POLICY 1103 CRE Precaution Screen Negative History Precautions Isolation Precautions Standard Triage Nursing Assessment Allergies Allergies Verified Yes Treatment Prior to Arrival Pre-Hospital Treatment IV Fluids Treatment Today For Seeking Treatment Today For No Mental Health Issues Psychosocial Assessment Thoughts of by Suicide in the Last No 30 Days Homicidial Thoughts in the Last 30 Days No Substance Use Smoking Status Unknown if Ever Smoked Dialysis Peritoneal Dialysis Patient No 12/12 16:30 78-year-old male seen yesterday. Pending transfer for hypercoagulable state. No immediate transport is available and do not anticipate transport anytime soon. I was asked to reevaluate the patient. Patient's power of managing attorney the sister is at bedside. She states that he has chronic disease. Is been in a [facility] 10 years. She does not want him to be resuscitated if anything happens. She would prefer to keep him at the hospital and make him a DNR and if he does not get better to put him on hospice is comfort care. Patient has reportedly had no further bleeding. NG tube, Gonsalez in place. 11/10/18 16:31 Review of systems: Unable to obtain due to altered mental status Physical exam: General: Obtunded, no acute distress HEENT: Atraumatic, normocephalic, pupils equal round react to light and accommodation, extraocular muscles are intact, nose is non tender, posterior pharynx is without erythema or exudate. Tongue is unremarkable nasogastric tube in place. Heart: Heart with regular rate and rhythm, no murmurs, no rubs, no clicks Lungs: Lungs clear to auscultation bilaterally, no wheezes, rhonchi, rales Abdomen: Abdomen is soft, nontender, nondistended, normal bowel sounds Neuro: cranial nerves II through XII intact, reflexes intact, sensation intact, Extremities:Moving all extremities. Equal strength bilaterally in the upper lower extremities. No significant deformity Skin: No lesions. Skin intact Psych: Normal insight. Normal judgment Course: Long discussion with she and sister. At this time I think it is inappropriate to transfer the patient. He is a DNR. More likely needs comfort care. We can do that here. He does not need dialysis and the sister would not agree to dialysis anyway. This discussion was had in the presence of RN as well. Will admit to the hospitalist at this time. Discharge Summary ED Provider: YULY HUDSON Status: Transfer Accepted Time Seen by Provider: 11/10/18 16:25 Condition: Stable Triaged At: 11/09/18 20:01 Emergency Discharge Date/Time: Emergency Discharge Disposition: [facility] Clinical Impression Acute GI bleeding Acute kidney injury Altered mental status Emergency Discharge Comment: Discharge Intervention Last Done Vital Signs (ED) Discharge Documentation Left Without Being Seen (LWBS) Left Against Medical Advice (AMA)/Eloped Instructions: Stand-Alone Forms: Prescriptions: Visit Report - Forms: - Referrals: ZEV RAM MD (Primary Care Provider) - Follow up as needed Surgeons Discharge Summary *Bolt Sorter CAPTURE Start: 11/09/18 20:26 Freq: Status: Active Protocol: Document 11/10/18 15:16 [facility] (Rec: 11/10/18 15:[address] [id number] ED Monitor Capture Temperature Temperature (97.0 F-100.4 F) 98.7 F Pulse Rate Heart Rate (Monitors) 87 Respiratory Respiratory Rate (12-20 breaths/min) 18 Pulse Oximetry (92-100) 99 Blood Pressure Blood Pressure (100/60-125/85 mm Hg) 106/66 Blood Pressure Mean (mm Hg) 79 Pivot Start: 11/09/18 20:01 Freq: NOW Status: Complete Protocol: Document 11/09/18 20:01 [facility] (Rec: 11/09/18 20:34 [email or web address]) Pivot Arrival Chief Complaint Altered Mental Status Priority Level 2 Stroke/TIA Suspected Is this a TPA alert? No Pain Assessment Pain Level Denies Is This a Long Bone Pain Patient? No Restraint: Non-Violent Behavior Start: 11/09/18 22:57 Freq: Q2 Status: Active Protocol: Document 11/10/18 05:00 [facility] (Rec: 11/10/18 05:59 [facility] [email or web address]) Non-Violent Behavior Restraint Status Restraints Status Continued Nursing Unit Patient is Located On ED Indications for Initiating Restraints Attempting to remove IV Gonsalez catheter NG/OG tube Type/Location of Restraints Restraint Location Right UE Left UE Restraint Type Soft Limb Least Restrictive Measures Attempted Unsuccessful measures attempted Reality Orientation Environmental Support Close to Nurses Station Care Rendered Need for Restraints-Check Q 2 Hours Yes Restraints Applied Appropriately Q 2 Yes Hours ADL's Addressed Q 2 Hours Yes ADL's Addressed Q 2 Hours Elimination Hygiene Nutrition CMS/Skin Check Q 2 Hours Yes Position Change Q 2 Hours Yes Release/ROM Q 2 Hours Yes Respirations WNL-Check Q 2 Hours Yes Triage- Altered Mental Status Start: 11/09/18 20:26 Freq: NOW Status: Complete Protocol: Document 11/09/18 20:01 [facility] (Rec: 11/09/18 21:04 [facility] [email or web address]) [place] Coma Scale Assess Eye Opening To Pain Verbal Response None Motor Response Withdraws to Pain Total Coma Scale Total (15 points) 7 HPI- Altered Mental Status HPI Onset This afternoon Symptoms Constant Duration Continues in ED Confirmed onset No Arousable To Deep Pain Found unconscious/unknown duration by care home staff Was STROKE ALERT Called Yes Baseline Baseline cognitive Unknown Baseline gait Unable to walk Infection Control Screen CRE Status REFER TO INFECTION CONTROL POLICY 1103 CRE Precaution Screen Negative History Precautions Isolation Precautions Standard Triage Nursing Assessment Allergies Allergies Verified Yes Treatment Prior to Arrival Pre-Hospital Treatment IV Fluids Treatment Today For Seeking Treatment Today For No Mental Health Issues Psychosocial Assessment Thoughts of by Suicide in the Last No 30 Days Homicidial Thoughts in the Last 30 Days No Substance Use Smoking Status Unknown if Ever Smoked Dialysis Peritoneal Dialysis Patient No
--- NOTE | 2018-11-10 16:38 | ER Document Report ---
ED General - General Chief Complaint: Altered Mental Status Stated Complaint: ALTERED MENTAL STATUS Time Seen by Provider: 11/10/18 16:25 Primary Care Provider: ZEV RAM MD [Primary Care Provider] - Follow up as needed Mode of Arrival: Medic Notes: 12/12 16:30 78-year-old male seen yesterday. Pending transfer for hypercoagulable state. No immediate transport is available and do not anticipate transport anytime soon. I was asked to reevaluate the patient. Patient's power of traffic law attorney the sister is at bedside. She states that he has chronic disease. Is been in a group home for 10 years. She does not want him to be resuscitated if anything happens. She would prefer to keep him at the hospital and make him a DNR and if he does not get better to put him on hospice is comfort care. Patient has reportedly had no further bleeding. NG tube, Gonsalez in place. 11/10/18 16:31 Review of systems: Unable to obtain due to altered mental status Physical exam: General: Obtunded, no acute distress HEENT: Atraumatic, normocephalic, pupils equal round react to light and accommodation, extraocular muscles are intact, nose is non tender, posterior pharynx is without erythema or exudate. Tongue is unremarkable nasogastric tube in place. Heart: Heart with regular rate and rhythm, no murmurs, no rubs, no clicks Lungs: Lungs clear to auscultation bilaterally, no wheezes, rhonchi, rales Abdomen: Abdomen is soft, nontender, nondistended, normal bowel sounds Neuro: cranial nerves II through XII intact, reflexes intact, sensation intact, Extremities:Moving all extremities. Equal strength bilaterally in the upper lower extremities. No significant deformity Skin: No lesions. Skin intact Psych: Normal insight. Normal judgment Course: Long discussion with she and sister. At this time I think it is inappropriate to transfer the patient. He is a DNR. More likely needs comfort care. We can do that here. He does not need dialysis and the sister would not agree to dialysis anyway. This discussion was had in the presence of RN as well. Will admit to the hospitalist at this time. TRAVEL OUTSIDE OF THE [place] IN LAST 30 DAYS: No - Related Data Allergies/Adverse Reactions: No Known Allergies Allergy (Verified 12/25/15 13:30) Past Medical History - General Information source: Emergency Med Personnel - Social History Smoking Status: Unknown if Ever Smoked Family History: Reviewed & Not Pertinent, Other - Unobtainable due to altered mental status Patient has suicidal ideation: No Patient has homicidal ideation: No - Past Medical History Cardiac Medical History: Reports: Hx Atrial Fibrillation, Hx Congestive Heart Failure, Hx Coronary Artery Disease, Hx Heart Attack, Hx Hypercholesterolemia, Hx Hypertension, Hx Peripheral Vascular Disease, Hx Pulmonary Embolism Pulmonary Medical History: Denies: Hx Tuberculosis Neurological Medical History: Reports: Hx Cerebrovascular Accident - Residual right-sided weakness per old records, Hx Migraine Endocrine Medical History: Reports: Hx Diabetes Mellitus Type 2 Renal/ Medical History: Reports: Hx End Stage Renal Disease. Denies: Hx Damaris toneal Dialysis GI Medical History: Reports: Hx Gastroesophageal Reflux Disease Musculoskeletal Medical History: Reports Hx Muscle Weakness Psychiatric Medical History: Reports: Hx Bipolar Disorder, Hx Dementia, Hx Depression Past Surgical History: Reports: Hx Cardiac Surgery - CABG, Hx Coronary Artery Bypass Graft, Hx Orthopedic Surgery - r-knee, back. Denies: Hx Pacemaker - Immunizations Hx Diphtheria, Pertussis, Tetanus Vaccination: Yes Hx Pneumococcal Vaccination: 02/24/11 Physical Exam - Vital signs Vitals: Temp Pulse Resp BP Pulse Ox 99.1 F 94 20 135/72 H 94 11/09/18 20:01 11/09/18 20:01 11/09/18 20:01 11/09/18 20:01 11/09/18 20:01 Course - Vital Signs Vital signs: Temp Pulse Resp BP Pulse Ox 98.7 F 85 18 106/66 99 11/10/18 15:16 11/10/18 15:00 11/10/18 15:16 11/10/18 15:16 11/10/18 15:16 - Laboratory Result Diagrams: 11/10/18 11:47 11/10/18 11:47 Laboratory results interpreted by me: 11/09/18 11/09/18 11/09/18 20:15 20:15 20:38 WBC 16.5 H RBC 4.20 L Hgb 11.7 L Hct 36.6 L MCHC RDW 16.3 H Seg Neutrophils % 82.5 H Lymphocytes % 10.4 L Absolute Neutrophils 13.6 H PT APTT Carbonic Acid ABG pH ABG pCO2 ABG HCO3 ABG Total CO2 Sodium 160.6 H Chloride 132 H Carbon Dioxide 15 L BUN 126 H Creatinine 5.89 H Est GFR ( Amer) 11 L Est GFR (Non-Af Amer) 9 L Glucose 332 H POC Glucose 315 H Direct Bilirubin 0.5 H Albumin 3.3 L Urine Protein Urine Glucose (UA) Urine Blood 11/09/18 11/09/18 11/09/18 21:00 21:19 23:16 WBC RBC Hgb Hct MCHC RDW Seg Neutrophils % Lymphocytes % Absolute Neutrophils PT > 120.0 H* APTT 130.7 H Carbonic Acid 0.82 L ABG pH 7.34 L ABG pCO2 27.1 L ABG HCO3 14.3 L ABG Total CO2 15.1 L Sodium Chloride Carbon Dioxide BUN Creatinine Est GFR ( Amer) Est GFR (Non-Af Amer) Glucose POC Glucose Direct Bilirubin Albumin Urine Protein 100 H Urine Glucose (UA) 150 H Urine Blood LARGE H 11/10/18 11/10/18 11/10/18 03:05 10:13 11:47 WBC 15.2 H RBC 3.42 L Hgb 9.5 L D Hct 29.8 L MCHC 31.9 L RDW 16.1 H Seg Neutrophils % 84.6 H Lymphocytes % 9.7 L Absolute Neutrophils 12.9 H PT APTT Carbonic Acid ABG pH ABG pCO2 ABG HCO3 ABG Total CO2 Sodium 159.2 H Chloride 129 H Carbon Dioxide 20 L BUN 118 H Creatinine 5.28 H Est GFR ( Amer) 13 L Est GFR (Non-Af Amer) 11 L Glucose 314 H POC Glucose 286 H Direct Bilirubin Albumin Urine Protein Urine Glucose (UA) Urine Blood 11/10/18 11/10/18 11:47 11:47 WBC RBC Hgb Hct MCHC RDW Seg Neutrophils % Lymphocytes % Absolute Neutrophils PT 21.3 H D APTT Carbonic Acid ABG pH ABG pCO2 ABG HCO3 ABG Total CO2 Sodium 162.5 H Chloride 131 H Carbon Dioxide 21 L BUN 109 H Creatinine 4.86 H Est GFR ( Amer) 14 L Est GFR (Non-Af Amer) 12 L Glucose 284 H POC Glucose Direct Bilirubin 0.5 H Albumin 3.2 L Urine Protein Urine Glucose (UA) Urine Blood Discharge - Discharge Clinical Impression: Acute GI bleeding, Acute kidney injury Altered mental status Qualifiers: Altered mental status type: stupor Qualified Code(s): R40.1 - Stupor Condition: Stable Disposition: ADMITTED INPATIENT Admitting Provider: Mary Kay (Hospitalist) Unit Admitted: Medical Floor Referrals: ZEV RAM MD [Primary Care Provider] - Follow up as needed
[2018-11-10] MEDS ORDERED: ATROPINE SULFATE 1% OPH SOLN 5 ML BOTTLE SL PRN (17:43)
[2018-11-10] MEDS ORDERED: ACETAMINOPHEN 650 MG SUPP.RECT PR PRN (17:45)
[2018-11-10] MEDS ORDERED: ONDANSETRON HCL INJ/PF 4 MG/2 ML SDV IV PRN (17:45)
[2018-11-10] MEDS ORDERED: DIPHENHYDRAMINE HCL 50 MG/ML VIAL IV PRN (17:45)
[2018-11-10] MEDS ORDERED: PROMETHAZINE HCL INJ 25 MG/1 ML VIAL IV PRN (17:45)
[2018-11-10] MEDS ORDERED: BISACODYL 10 MG SUPP.RECT PR PRN (17:45)
--- NOTE | 2018-11-10 17:53 | ADVANCED CARE ---
- Diagnosis (1) Acute GI bleeding Diagnosis Current: Yes (2) Acute kidney injury Diagnosis Current: Yes (3) Altered mental status Diagnosis Current: Yes (4) Anticoagulated on Coumadin Diagnosis Current: Yes Attendance: The patient's sister, Joanie (HCPOA), and niece. Joanie can be reached at [phone] Resuscitation Status: Comfort Measures Only Discussion: Discussed with the patient's sister (POA) and niece the patient's chronic medical conditions and current health status. Patient is chronically anticoagulated on Coumadin and presented to the emergency department with active GI bleeding and supratherapeutic INR (INR was too high to read). Patient is noted to have dementia, bipolar, depression anxiety at baseline. He will resides at a [facility] facility. Since arrival to the emergency department he has been arousable, but does not answer questions or follow commands. Patient sister indicates the patient would not wish to have aggressive interventions. She is the healthcare power of claims attorney and confirms the patient's current DNR status. She advises that she wishes to discontinue aggressive medical interventions and pursue comfort care measures only. We discussed that with the patient's current GI bleed, it would be reasonable to expect that the patient would pass away from his active/acute medical conditions within the next several days. Joanie, sister, does acknowledge this and states that this is in line with his prior expressed wishes. Her only wish is that her brother not suffer. Care Planning Goals: Admit to hospital. Hospice consultation; family interested in inpatient hospice services if eligible. Comfort care measures only. Time Spent: 20 min
--- NOTE | 2018-11-10 18:05 | PDOC H&P ---
History of Present Illness Admission Date/PCP: 11/10/18 16:53 ZEV RAM MD Patient complains of: GI bleed History of Present Illness: JENNY MELO is a 78 year old male with past medical history significant for CAD, pacemaker, CVA, HLD, hypertension, CHF, pulmonary embolus, chronically anticoagulated on Coumadin, rheumatic heart disease, bipolar, dementia, and depression who resides at [facility]. Patient presented to the ED with altered mental status and acute GI bleed. He was found to have supratherapeutic INR; too high to measure. Patient had been waiting overnight in the emergency department up for transfer to tertiary care facility. However, today family members approached the ED provider to discuss de-escalation of care and movement toward comfort care measures only. The patient had priorly been treated for his INR with vitamin K; INR today is 1.82, hemoglobin 9.5 following 2 units PRBC, creatinine 4.86, BUN 109, sodium 162. He has an NG tube in place with harry blood in tubing. ED provider confirmed family's intention to move towards comfort care measures only. Therefore the hospitalist service is consulted for admission and p lacement and inpatient hospice facility. Past Medical History Cardiac Medical History: Reports: Atrial Fibrillation, Congestive Heart Failure, Coronary Artery Disease, Myocardial Infarction, Hyperlipidema, Hypertension, Peripheral Vascular Disease, Pulmonary Embolism Pulmonary Medical History: Denies: Tuberculosis Neurological Medical History: Reports: Ischemic CVA, Migraine Endocrine Medical History: Reports: Diabetes Mellitus Type 2, Obesity Renal/ Medical History: Reports: Chronic Kidney Disease GI Medical History: Reports: Gastroesophageal Reflux Disease Psychiatric Medical History: Reports: Bipolar Disorder, Dementia, Depression Hematology: Reports: Anemia Past Surgical History Past Surgical History: Reports: Coronary Artery Bypass Graft, Orthopedic Surgery - r-knee, back Denies: Pacemaker Social History Information Source: Relative, [facility] Records Lives with: Alf Smoking Status: Unknown if Ever Smoked Frequency of Alcohol Use: None Hx Recreational Drug Use: No Hx Prescription Drug Abuse: No - Advance Directive Resuscitation Status: Comfort Measures Only Family History Family History: Reviewed & Not Pertinent, Other - Unobtainable due to altered mental status Parental Family History Reviewed: No Children Family History Reviewed: No Sibling(s) Family History Reviewed.: No Medication/Allergy Home Medications: Aspirin [Aspirin 81 mg Chewable Tablet] 81 mg PO DAILY 07/01/14 Glipizide [Glucotrol Xl] 10 mg PO Q12 07/01/14 Insulin Aspart [Novolog Insulin (Aspart) 100 unit/mL] 0 unit SUBCUT .SLD SCALE 07/01/14 Omeprazole [Prilosec] 20 mg PO Q12 07/01/14 Ondansetron HCl [Zofran 4 mg Tablet] 1 tab PO Q8H PRN 07/01/14 Rosuvastatin Calcium [Crestor 20 mg Tablet] 20 mg PO DAILY 07/01/14 Sennosides [Senna] 8.6 mg PO BID 07/01/14 Simethicone [Mylanta] 125 mg PO Q12 PRN 07/01/14 Topiramate [Topamax] 50 mg PO QHS 07/01/14 Trolamine Salicylate [Aspercreme] 177.4 ml TP Q6H PRN 07/01/14 Acetaminophen [Tylenol] 650 mg PO Q4 PRN 02/23/15 Cyanocobalamin (Vitamin B-12) [Vitamin B12] 1,000 mcg SL DAILY 02/23/15 Ergocalciferol (Vitamin D2) [Drisdol 50,000 unit (1.25MG) Capsule] 50,000 units PO [id number] 02/23/15 Ferrous Sulfate [Feosol 325 mg Tablet] 325 mg PO DAILY 02/23/15 Furosemide [Lasix] 10 mg PO DAILY 02/23/15 [place]-3 Fatty Acids [Fish Oil] 1,000 mg PO BID 02/23/15 Polyethylene Glycol 3350 [Miralax Powder 17 gm/Packet] 17 gm PO HSP PRN 02/23/15 Sitagliptin Phosphate [Januvia 50 mg Tablet] 50 mg PO DAILY 02/23/15 Warfarin Sodium [Coumadin 2.5 mg Tablet] 2.5 mg PO QHS 02/23/15 Duloxetine HCl [Cymbalta] 60 mg PO DAILY #30 capsule. 02/25/15 Gabapentin [Neurontin 300 mg Capsule] 900 mg PO Q8 #0 capsule 02/25/15 Gabapentin [Neurontin 300 mg Capsule] 900 mg PO Q8 30 Days cap 02/25/15 Melatonin/Pyridoxine [Melatonin 5 Mg Tablet] 1 each PO QHS #30 tablet 02/25/15 Cephalexin Monohydrate [Keflex 500 mg Capsule] 500 mg PO QID #40 capsule 08/27/16 Allergies/Adverse Reactions: No Known Allergies Allergy (Verified 12/25/15 13:30) Review of Systems ROS unobtainable: Due to mental status Physical Exam Vital Signs: Temp Pulse Resp BP Pulse Ox 98.7 F 85 18 106/66 99 11/10/18 15:16 11/10/18 15:00 11/10/18 15:16 11/10/18 15:16 11/10/18 15:16 Intake & Output 11/09/18 11/10/18 11/11/18 06:59 06:59 06:59 Intake Total 3671 Balance 3671 Weight 93.5 kg General appearance: PRESENT: disheveled, obese, well-developed, well-nourished Head exam: PRESENT: atraumatic, normocephalic Eye exam: PRESENT: conjunctiva pink, EOMI, PERRLA. ABSENT: scleral icterus Respiratory exam: PRESENT: symmetrical, unlabored, other - supplemental oxygen via NC Pulses: PRESENT: normal dorsalis pedis pul GI/Abdominal exam: PRESENT: distended Rectal exam: PRESENT: deferred Extremities exam: ABSENT: pedal edema Neurological exam: PRESENT: other - Arousable to voice; makes eye contact briefly but does not answer questions or follow commands. Skin exam: PRESENT: pallor, warm Results Laboratory Results: 11/10/18 11:47 11/10/18 11:47 11/09/18 11/09/18 11/09/18 20:15 20:15 20:15 WBC 16.5 H RBC 4.20 L Hgb 11.7 L Hct 36.6 L MCV 87 MCH 27.9 MCHC 32.0 RDW 16.3 H Plt Count 356 Seg Neutrophils % 82.5 H Lymphocytes % 10.4 L Monocytes % 6.4 Eosinophils % 0.3 Basophils % 0.4 Absolute Neutrophils 13.6 H Absolute Lymphocytes 1.7 Absolute Monocytes 1.1 Absolute Eosinophils 0.0 Absolute Basophils 0.1 Carbonic Acid HCO3/H2CO3 Ratio ABG pH ABG pCO2 ABG pO2 ABG HCO3 ABG O2 Saturation ABG Base Excess FiO2 Sodium 160.6 H Potassium 4.5 Chloride 132 H Carbon Dioxide 15 L Anion Gap 14 BUN 126 H Creatinine 5.89 H Est GFR ( Amer) 11 L Est GFR (Non-Af Amer) 9 L Glucose 332 H Lactic Acid 1.1 Calcium 8.9 Total Bilirubin 0.5 AST 22 ALT 72 Alkaline Phosphatase 118 Total Protein 7.5 Albumin 3.3 L Urine Color Urine Appearance Urine pH Ur Specific Helen Urine Protein Urine Glucose (UA) Urine Ketones Urine Blood Urine Nitrite Ur Leukocyte Esterase Urine WBC (Auto) Urine RBC (Auto) Blood Type 11/09/18 11/09/18 11/09/18 20:15 21:00 23:16 WBC RBC Hgb Hct MCV MCH MCHC RDW Plt Count Seg Neutrophils % Lymphocytes % Monocytes % Eosinophils % Basophils % Absolute Neutrophils Absolute Lymphocytes Absolute Monocytes Absolute Eosinophils Absolute Basophils Carbonic Acid 0.82 L HCO3/H2CO3 Ratio 17:1 ABG pH 7.34 L ABG pCO2 27.1 L ABG pO2 97.7 ABG HCO3 14.3 L ABG O2 Saturation 97.2 ABG Base Excess -10.0 FiO2 2L Sodium Potassium Chloride Carbon Dioxide Anion Gap BUN Creatinine Est GFR ( Amer) Est GFR (Non-Af Amer) Glucose Lactic Acid Calcium Total Bilirubin AST ALT Alkaline Phosphatase Total Protein Albumin Urine Color RED Urine Appearance TURBID Urine pH 5.0 Ur Specific Helen 1.025 Urine Protein 100 H Urine Glucose (UA) 150 H Urine Ketones NEGATIVE Urine Blood LARGE H Urine Nitrite NEGATIVE Ur Leukocyte Esterase NEGATIVE Urine WBC (Auto) 146 Urine RBC (Auto) >182 Blood Type A POSITIVE 11/10/18 11/10/18 11/10/18 03:05 11:47 11:47 WBC 15.2 H RBC 3.42 L Hgb 9.5 L D Hct 29.8 L MCV 87 MCH 27.8 MCHC 31.9 L RDW 16.1 H Plt Count 264 Seg Neutrophils % 84.6 H Lymphocytes % 9.7 L Monocytes % 4.6 Eosinophils % 0.8 Basophils % 0.3 Absolute Neutrophils 12.9 H Absolute Lymphocytes 1.5 Absolute Monocytes 0.7 Absolute Eosinophils 0.1 Absolute Basophils 0.0 Carbonic Acid HCO3/H2CO3 Ratio ABG pH ABG pCO2 ABG pO2 ABG HCO3 ABG O2 Saturation ABG Base Excess FiO2 Sodium 159.2 H 162.5 H Potassium 4.6 4.1 Chloride 129 H 131 H Carbon Dioxide 20 L 21 L Anion Gap 10 11 BUN 118 H 109 H Creatinine 5.28 H 4.86 H Est GFR ( Amer) 13 L 14 L Est GFR (Non-Af Amer) 11 L 12 L Glucose 314 H 284 H Lactic Acid Calcium 8.9 8.6 Total Bilirubin 0.5 AST 20 ALT 57 Alkaline Phosphatase 102 Total Protein 6.4 Albumin 3.2 L Urine Color Urine Appearance Urine pH Ur Specific Helen Urine Protein Urine Glucose (UA) Urine Ketones Urine Blood Urine Nitrite Ur Leukocyte Esterase Urine WBC (Auto) Urine RBC (Auto) Blood Type 11/09/18 11/09/18 20:15 20:15 Creatine Kinase 121 CK-MB (CK-2) 2.07 Troponin I 0.081 Impressions: Head CT 11/09/18 20:08 IMPRESSION: No acute intracranial findings are seen. Please note that MRI is more sensitive for the evaluation of early infarction, and may be performed if there is high clinical concern. Abdomen/Pelvis CT 11/09/18 20:14 IMPRESSION: 1. Bilateral hydroureter and periureteric stranding without radiopaque stone identified. This may represent recently passed stone versus infection. Correlate with urinalysis. 2. Large amount of stool in the rectum suggesting constipation. No bowel obstruction or diverticulitis. 3. Gallstones without inflammatory changes. 4. 3.1 cm abdominal aortic aneurysm. Recommend follow-up every 3 years. Reference: J Am Vitaliy Radiol 2013;10:789-794. Chest X-Ray 11/09/18 21:48 IMPRESSION: Enteric drainage tube tip is located within the gastric cardia with side-port located at the GE junction. Consider advancement for optimal positioning. Bandlike atelectasis about the left lung base. copyright 2011 [employer]- All Rights Reserved Assessment and Plan - Diagnosis (1) Need for comfort care Is this a current diagnosis for this admission?: Yes Plan: Comfort care order set deployed. Patient is admitted to the medical floor. IV morphine, Ativan, Benadryl, Zofran, Phenergan available as needed for symptom management. Discharge planning is consulted. Patient's family members are interested in inpatient hospice facility if eligible. (2) Acute GI bleeding Is this a current diagnosis for this admission?: Yes Plan: Secondary to supratherapeutic INR. Hemoccult positive. Now status post has received 2 units PRBC. Now comfort care measures only. (3) Acute kidney injury Is this a current diagnosis for this admission?: Yes Plan: Acute on chronic kidney disease. Patient's baseline creatinine appears to be 1.4. Admitted with a creatinine of 5.23, increased slightly now down to 4.86. Gonsalez in place with small amount of dark charlie-colored urine. Now on comfort care measures only. (4) Altered mental status Qualifiers: Altered mental status type: somnolence Qualified Code(s): R40.0 - Somnolence Is this a current diagnosis for this admission?: Yes Plan: Multifactorial secondary to anemia, acute GI bleed, acute kidney injury, hyponatremia. Now on comfort care measures only. Supportive care. Fall precautions. (5) Anticoagulated on Coumadin Is this a current diagnosis for this admission?: Yes Plan: Patient was admitted with an INR to high to calculate. This was corrected by the ED providers with vitamin K. Today INR is 1.82. Long discussion with family today; pursuing comfort care measures only. We will hold any additional anticoagulants. (6) Hypernatremia Is this a current diagnosis for this admission?: Yes Plan: Comfort care measures only. - Time Time Spent with patient: 35 or more minutes Medications reviewed and adjusted accordingly: Yes Anticipated discharge: Hospice Within: when bed available
[2018-11-10] MEDS ORDERED: SCOPOLAMINE HYDROBROMIDE 1.5 MG PATCH.TD72 TD SCH (19:30)
[2018-11-10 22:15] VITALS: BP 117/51
[2018-11-10] MEDS: LORAZEPAM INJ 2 MG/1 ML VIAL IV PRN (22:33)
[2018-11-10] MEDS: MORPHINE SULFATE 10 MG/ML INJ IV PRN (22:34)
[2018-11-11] MEDS: MORPHINE SULFATE 10 MG/ML INJ IV PRN ×6 (04:35→20:04)
[2018-11-11] MEDS: LORAZEPAM INJ 2 MG/1 ML VIAL IV PRN ×6 (04:37→20:03)
--- NOTE | 2018-11-11 18:02 | Progress Note Acknowledgement ---
Progress Note Acknowledgement Progess Note Acknowledgement: I, the undersigned member of the medical staff with appropriate privileges and with supervisory authority over Roseanne Pisano, a [facility] practice allied health professional, acknowledge that I have reviewed the progress notes entered on this patient, and in my professional judgment believe that the assessment made and/or any care evidenced was appropriate
--- NOTE | 2018-11-11 18:08 | PDOC PROGRESS REPORT ---
Subjective Progress Note for:: 11/11/18 Subjective:: JENNY MELO is a 78 year old male with past medical history significant for CAD, pacemaker, CVA, HLD, hypertension, CHF, pulmonary embolus, chronically anticoagulated on Coumadin, rheumatic heart disease, bipolar, dementia, and depression who was admitted 11/10/2018 for acute GI bleeding, acute kidney injury, Altered mental status, hypernatremia, and small bowel obstruction. Patient was seen on morning rounds. No family members were present at this time. The patient is obtunded; does not respond to verbal or tactile stimuli. He is noted to have tachypnea (respiratory rate high 30s low 40s) but does not appear to be in any discomfort. ROS is limited secondary to mental status. Discussed with nursing comfort care order set and administration of morphine for tachypnea. Nursing has no questions or concerns at this time. Reason For Visit: AMS,CAMRYN,GI BLEED Physical Exam Vital Signs: Temp Pulse Resp BP Pulse Ox 97.4 F 45 L 14 117/51 L 83 L 11/10/18 21:51 11/10/18 21:51 11/10/18 21:51 11/10/18 21:51 11/10/18 21:51 Intake & Output 11/10/18 11/11/18 11/12/18 06:59 06:59 06:59 Intake Total 3671 0 0 Output Total 0 300 Balance 3671 -0 -300 Weight 93.5 kg General appearance: PRESENT: mild distress, well-developed, well-nourished Head exam: PRESENT: atraumatic, normocephalic Eye exam: PRESENT: conjunctiva pink. ABSENT: scleral icterus Mouth exam: PRESENT: dry mucosa, tongue midline Respiratory exam: PRESENT: clear to auscultation saray, symmetrical, tachypnea, other - Supplemental oxygen via nasal cannula. ABSENT: rales, rhonchi, wheezes Cardiovascular exam: PRESENT: RRR, +S1, +S2. ABSENT: diastolic murmur, rubs, systolic murmur Vascular exam: PRESENT: pallor GI/Abdominal exam: PRESENT: hypoactive bowel sounds, soft. ABSENT: distended Rectal exam: PRESENT: deferred Extremities exam: ABSENT: clubbing, pedal edema Neurological exam: PRESENT: other - Obtunded Skin exam: PRESENT: dry, intact, pallor, warm. ABSENT: cyanosis, rash Results Laboratory Results: 11/10/18 11:47 11/10/18 11:47 11/09/18 11/09/18 20:15 20:15 Creatine Kinase 121 CK-MB (CK-2) 2.07 Troponin I 0.081 Impressions: Head CT 11/09/18 20:08 IMPRESSION: No acute intracranial findings are seen. Please note that MRI is more sensitive for the evaluation of early infarction, and may be performed if there is high clinical concern. Abdomen/Pelvis CT 11/09/18 20:14 IMPRESSION: 1. Bilateral hydroureter and periureteric stranding without radiopaque stone identified. This may represent recently passed stone versus infection. Correlate with urinalysis. 2. Large amount of stool in the rectum suggesting constipation. No bowel obstruction or diverticulitis. 3. Gallstones without inflammatory changes. 4. 3.1 cm abdominal aortic aneurysm. Recommend follow-up every 3 years. Reference: J Am Vitaliy Radiol 2013;10:789-794. Chest X-Ray 11/09/18 21:48 IMPRESSION: Enteric drainage tube tip is located within the gastric cardia with side-port located at the GE junction. Consider advancement for optimal positioning. Bandlike atelectasis about the left lung base. copyright 2011 [employer]- All Rights Reserved Assessment and Plan - Diagnosis (1) Need for comfort care Is this a current diagnosis for this admission?: Yes Plan: Comfort care order set deployed. Patient is admitted to the medical floor. IV morphine, Ativan, Benadryl, Zofran, Phenergan available as needed for symptom management. Discharge planning is consulted; seeking inpatient hospice placement. (2) Acute GI bleeding Is this a current diagnosis for this admission?: Yes Plan: Secondary to supratherapeutic INR. Hemoccult positive. Now status post has received 2 units PRBC. Now comfort care measures only. (3) Acute kidney injury Is this a current diagnosis for this admission?: Yes Plan: Acute on chronic kidney disease. Patient's baseline creatinine appears to be 1.4. Admitted with a creatinine of 5.23, slightly now down to 4.86. Gonsalez in place with small amount of dark charlie-colored urine. Now on comfort care measures only. No longer following labs (4) Altered mental status Qualifiers: Altered mental status type: somnolence Qualified Code(s): R40.0 - Somn olence Is this a current diagnosis for this admission?: Yes Plan: Multifactorial secondary to anemia, acute GI bleed, acute kidney injury, hypo natremia. Now on comfort care measures only. Supportive care. Fall precautions. (5) Anticoagulated on Coumadin Is this a current diagnosis for this admission?: Yes Plan: Patient was admitted with an INR to high to calculate. This was corrected by the ED providers with vitamin K. Repeat INR is 1.82. Comfort care measures only. We will hold any additional anticoagulants. No longer following labs (6) Hypernatremia Is this a current diagnosis for this admission?: Yes Plan: Comfort care measures only. - Time Time Spent with patient: Less than 15 minutes Medications reviewed and adjusted accordingly: Yes Anticipated discharge: Hospice Within: when bed available
--- NOTE | 2018-11-12 07:45 | Death Summary ---
Summary Date : 11/12/18 Time of :: 21:43 Autopsy: No Resuscitation Status: Comfort Measures Only - Final Diagnosis (1) Need for comfort care Is this a current diagnosis for this admission?: Yes (2) Acute GI bleeding Is this a current diagnosis for this admission?: Yes (3) Altered mental status Is this a current diagnosis for this admission?: Yes (4) Anticoagulated on Coumadin Is this a current diagnosis for this admission?: Yes (5) Hypernatremia Is this a current diagnosis for this admission?: Yes (6) Acute renal failure Is this a current diagnosis for this admission?: Yes (7) Anemia Is this a current diagnosis for this admission?: Yes Hospital Course:: JENNY MELO is a 78 year old male with past medical history significant for CAD, pacemaker, CVA, HLD, hypertension, CHF, pulmonary embolus, chronically anticoagulated on Coumadin, rheumatic heart disease, bipolar, dementia, and depression who resides at [facility]. Patient presented to the ED with altered mental status and acute GI bleed. He was found to have supratherapeutic INR; too high to measure. Patient had been waiting overnight in the emergency department up for transfer to tertiary care facility. However, today family members approached the ED provider to discuss de-escalation of care and movement toward comfort care measures only. The patient had priorly been treated for his INR with vitamin K; INR today is 1.82, hemoglobin 9.5 following 2 units PRBC, creatinine 4.86, BUN 109, sodium 162. He has an NG tube in place with harry blood in tubing. After discussing the patient's chronic and acute medical conditions (GI bleed, bowel obstruction, acute renal failure, altered mental status, sepsis) the patient's designated decision maker, Joanie Jaime, determined to make the patient DNR/DNI with comfort care measures only. Patient was admitted to the medical floor and comfort care measures that was deployed with IV morphine, Ativan, Benadryl, Zofran, and Phenergan available as needed for symptom management. Other medical interventions were discontinued. The patient expectantly on 11/11/2018 at 9:43 PM.
== END 2018-11-11 21:43 | disposition expired | DRG 378 ==
LOC: ER 20:01 → EH 11-10 16:53 → 4N 11-10 21:12
PROVIDERS: ADMIT Internal Medicine; ATTEND Internal Medicine
PROC: 30233L1 Transfusion of Nonautologous Fresh Plasma into Peripheral Vein, Percutaneous Approach (ICD-10-PCS; principal; 2018-11-09)
PROC: 30233L1 Transfusion of Nonautologous Fresh Plasma into Peripheral Vein, Percutaneous Approach (ICD-10-PCS; 2018-11-10)
DX: K92.2 Gastrointestinal hemorrhage, unspecified (principal); E87.0 Hyperosmolality and hypernatremia; N17.9 Acute kidney failure, unspecified; K56.609 Unspecified intestinal obstruction, unspecified as to partial versus complete obstruction; I13.0 Hypertensive heart and chronic kidney disease with heart failure and stage 1 through stage 4 chronic kidney disease, or unspecified chronic kidney disease; G81.90 Hemiplegia, unspecified affecting unspecified side; R47.01 Aphasia; I48.91 Unspecified atrial fibrillation; Z51.5 Encounter for palliative care; E11.51 Type 2 diabetes mellitus with diabetic peripheral angiopathy without gangrene; E11.22 Type 2 diabetes mellitus with diabetic chronic kidney disease; I50.9 Heart failure, unspecified; F03.90 Unspecified dementia, unspecified severity, without behavioral disturbance, psychotic disturbance, mood disturbance, and anxiety; D63.1 Anemia in chronic kidney disease; N18.3 Chronic kidney disease, stage 3 (moderate); I34.0 Nonrheumatic mitral (valve) insufficiency; M06.9 Rheumatoid arthritis, unspecified; Z66 Do not resuscitate; R41.82 Altered mental status, unspecified; I25.10 Atherosclerotic heart disease of native coronary artery without angina pectoris; E78.5 Hyperlipidemia, unspecified; I09.9 Rheumatic heart disease, unspecified; F31.9 Bipolar disorder, unspecified; E66.9 Obesity, unspecified; K21.9 Gastro-esophageal reflux disease without esophagitis; H40.9 Unspecified glaucoma; R47.1 Dysarthria and anarthria; I25.2 Old myocardial infarction; Z86.73 Personal history of transient ischemic attack (TIA), and cerebral infarction without residual deficits; Z86.711 Personal history of pulmonary embolism; Z68.28 Body mass index [BMI] 28.0-28.9, adult; Z95.1 Presence of aortocoronary bypass graft; Z95.0 Presence of cardiac pacemaker
CPT/HCPCS: 36415; 36430; 51702; 70450; 71045; 74176; 80048; 80053; 81001; 82550; 82553; 82803; 82962; 83605; 84484; 85025; 85610; 85730; 86900; 86901; 87040; 87070; 87086; 93005; 93010; 96361; 96365; 96375; 99291; J0696; J1200; J2060; J2270; J3430; J7120; P9017; S0164